=== PATIENT | female | born 1940 | race Caucasian/White ===

== ENCOUNTER 2020-01-10 12:59 | Outpatient (CLI) | payer OTHER, SELFPAY ==
[2020-01-10 14:24] LABS: Basophils Absolute Auto 0.1 K/mm3 (0.0-0.1); Basophils Percent Auto 0.8 % (0.2-1.2); Eosinophils Absolute Auto 0.3 K/mm3 (0-0.3); Eosinophils Percent Auto 3.3 % (0-4.4); Hematocrit 42.1 % (37.0-47.0); Hemoglobin 13.6 g/dL (12.0-15.0); Immature Granulocyte Absolute 0.02 K/mm3 (0.00-0.031); Immature Granulocyte Percent A 0.3 % (0-0.5); Lymphocytes Absolute Auto 1.97 K/mm3 (0.9-3.2); Lymphocytes Percent Auto 24.7 % (18.3-44.2); Mean Corpuscular HGB Conc 32.3 g/dl (32-36); Mean Corpuscular Hemoglobin 27.8 pg (26-34); Mean Corpuscular Volume 85.9 fl (80-100); Mean Platelet Volume 10.9 fl (7.4-10.4); Monocytes Absolute Auto 0.4 K/mm3 (0.1-0.6); Monocytes Percent Auto 4.5 % (2.6-8.5); Neutrophils Absolute Auto 5.3 K/mm3 (1.3-6.7); Neutrophils Percent Auto 66.4 % (45.5-73.1); Platelet Count Result 278 k/mm3 (150-375); Red Cell Distribution Width 15.9 % (11.5-14.5)
[2020-01-10 20:36] LABS: Blood Urea Nitrogen 17 mg/dL (7-17); Calcium 9.3 mg/dL (8.4-10.2); Carbon Dioxide 28 mmol/L (22-30); Chloride 99 mmol/L (98-107); Estimated Glomerular Filt Rate 54; Glucose 189 mg/dL (65-105); Potassium 3.9 mmol/L (3.4-5.0); Sodium 136 mmol/L (137-145)
[2020-01-10 20:51] LABS: Immunoglobulin A 221 mg/dL (70-400); Immunoglobulin G 721 mg/dL (700-1600); Immunoglobulin M 80 mg/dL (40-230)
[2020-01-15 22:24] LABS: Albumin 3.8 g/dL (3.8-4.8); Alpha 1 Globulin 0.4 g/dL (0.2-0.3); Alpha 2 Globulin 0.9 g/dL (0.5-0.9); Beta 1 Globulin 0.5 g/dL (0.4-0.6); Gamma Globulin 0.7 g/dL (0.8-1.7); Protein, Total 6.5 g/dL (6.1-8.1)
[2020-01-15 23:13] LABS: Kappa\\Lambda Light Chains 1.36 (0.26-1.65); Lambda Light Chain 17.6 mg/L (5.7-26.3)
== END 2020-01-10 13:00 | disposition home or self-care (01) ==
PROVIDERS: PCP Family Medicine; Visit Provider Internal Medicine Hematology & Oncology
DX: D47.2 Monoclonal gammopathy (principal)
CPT/HCPCS: 36415; 80048; 82784; 83883; 84155; 84165; 85025; 86334

== ENCOUNTER 2020-02-02 10:08 | Outpatient (CLI) | payer OTHER, SELFPAY ==
--- NOTE | ~2020-02-02 | MM_ITS ---
EXAMINATION: MM screening tracie BI w gerald HISTORY: Screening TECHNIQUE: Craniocaudal and mediolateral oblique 3-D tomosynthesis images were obtained and synthetic 2-D images were generated. CAD analysis was submitted and interpreted. COMPARISON: Comparison to multiple prior studies sequentially, with oldest reviewed study dated 08/14. BREAST PARENCHYMAL COMPOSITION: Breast composed of scattered areas of fibroglandular density. FINDINGS: There is no evidence of suspicious mass, calcification, or architectural distortion to sugg est malignancy in either breast. There has been no suspicious interval change. IMPRESSION: 1. No mammographic evidence of malignancy. 2. Recommend routine screening mammography in one year. BI-RADS Category 1: Negative Reviewed, dictated and finalized at location A.
--- NOTE | ~2020-02-02 | DEXA_ITS ---
Bone Density Report Name: Nichole Carmona Age: 79 Sex: Female Ethnicity: White Date of : 1940 Indication: postmenopausal; height loss; asthma or emphysema; hysterectomy; Referring Provider: Lula Regan Study: Bone densitometry was performed. Exam Date: February 02, 2020 Accession number: [id number] Bone Density: Region BMD T-score Z-score Classification AP Spine (L1, L3) 1.231 2.0 4.4 Normal Femoral Neck (Left) 0.968 1.1 3.2 Normal Total Hip (Left) 1.054 0.9 2.8 Normal Total Hip Bilateral Avg 1.038 0.8 2.7 Normal Femoral Neck (Right) 1.017 1.5 3.7 Normal Total Hip (Right) 1.021 0.6 2.5 Normal World Health Organization criteria for BMD impression classify patients as: Normal (T-score at or above -1.0), Osteopenia (T-score between -1.0 and -2.5), or Osteoporosis (T-score at or below -2.5). 10-year Fracture Risk: FRAX not reported because: All T-scores for Spine Total, Hip Total, Femoral Neck at or above -1.0 Previous Exams: Region Exam Age BMD T-score BMD Change BMD Change Date g/cm2 vs Baseline vs Previous AP Spine(L1, L3) 02/02/2020 79 1.231 2.0 -0.097(-7.3%)* -0.097(-7.3%)* 08/14/2014 73 1.328 2.9 Total Hip(Left) 02/02/2020 79 1.054 0.9 -0.030(-2.8%)* -0.030(-2.8%)* 08/14/2014 73 1.084 1.2 Total Hip(Right) 02/02/2020 79 1.021 0.6 -0.014(-1.4%) -0.014(-1.4%) 08/14/2014 73 1.035 0.8 *Denotes significance at 95% confidence level, LSC for AP Spine = 0.022 g/cm2, LSC for Total Hip = 0.027 g/cm2 Clinical Information Provided by Patient: Has used the following medications: HRT (i.e. estrogen/hormone therapy), Vitamin D, Calcium Has the following medical conditions: Asthma or Emphysema, Hysterectomy Patient maximum height was 64 Menopause Age: 33 Drinks caffeinated beverages Onset of menses at age 13 Number of children 0 Impression: The patient has normal bone mass. The BMD for the AP Spine(L1, L3) decreased, changing by -7.3% since the last DXA exam. The BMD for the Total Hip(Left) decreased, changing by -2.8% since the last DXA exam. Discussion: LOW RISK OF FRACTURE; BONE DENSITY IS WELL ABOVE THE MINIMUM DESIRABLE LEVEL AND ABOVE AVERAGE FOR AGE AND SEX AT ALL SKELETAL SITES TESTED. This person's bone density is above expected limits for age and sex. This is rarely clinically significant, but should be pursued if there are significant musculoskeletal complaints. The patient should follow a healthful
== END 2020-02-02 10:09 | disposition home or self-care (01) ==
PROVIDERS: PCP Family Medicine; Visit Provider Physician Assistant
DX: Z78.0 Asymptomatic menopausal state (principal); Z12.31 Encounter for screening mammogram for malignant neoplasm of breast
CPT/HCPCS: 77063; 77067; 77080

== ENCOUNTER 2021-05-23 11:17 | Emergency (ER) | payer OTHER, SELFPAY ==
[2021-05-23 11:29] VITALS: BP 146/73; PULSE 85; RESP 18; TEMP 38; O2SAT 97
--- NOTE | 2021-05-23 12:05 | ED.GENADULT ---
HPI - General Adult General Chief complaint: Upper Respiratory Infection Stated complaint: congestion/chills/cough Time Seen by Provider: 05/23/21 12:06 Source: patient Mode of arrival: ambulatory Limitations: no limitations History of Present Illness HPI narrative: 80-year-old female patient presents to the [facility] with complaints of cold symptoms for the past 2 to 3 days. Patient states started off with severe chills, body aches, headache, runny nose, stuffy nose, scratchy throat and a cough. Patient has been fully vaccinated with 2 dose regimen against COVID-19. Patient denies getting a booster shot. Patient states that her was in a jail which had some cases of Covid so they moved him out of their to her home. Patient states that her is not doing well is currently on hospice in the hospital. Related Data Home Medications Medication Instructions Recorded Confirmed cholecalciferol (vitamin D3) 50 2,000 unit PO DAILY 05/09/19 03/05/21 mcg (2,000 unit) tablet vit C 250 mg-vit E 90 mg-zinc 40 1 tablet PO ONCE cap 02/05/20 03/05/21 mg-copper 1 [id number] capsule omega-3 fatty acids 1,000 mg 1,000 mg PO DAILY 12/15/20 03/05/21 capsule cetirizine 10 mg tablet 10 mg PO DAILY PRN 03/05/21 03/05/21 vitamin B complex 1 tablet PO DAILY 03/05/21 03/05/21 Allergies Allergy/AdvReac Type Severity Reaction Status Date / Time propoxyphene Allergy Mild sob Verified 03/05/21 13:04 belladonna alkaloids Allergy Unknown sob Verified 03/05/21 13:04 Cephalosporins Allergy Unknown rash Verified 03/05/21 13:04 ciprofloxacin Allergy Unknown rash Verified 03/05/21 13:04 gentamicin Allergy Unknown swelling Verified 03/05/21 13:04 monosodium glutamate Allergy Unknown MAKES Verified 03/05/21 13:04 HEART RACE Penicillins Allergy Unknown rash Verified 03/05/21 13:04 pentazocine Allergy Unknown rash Verified 03/05/21 13:04 Sulfa (Sulfonamide Allergy Unknown rash and Verified 03/05/21 13:04 Antibiotics) cough Quinolones AdvReac Unknown BAD Verified 03/05/21 13:04 DREAMES & SOMETIMES HUGHES PENTAZOCINE LACTATE Allergy Unknown confusion Uncoded 03/05/21 13:04 Review of Systems Review of Systems: CONSTITUTIONAL: Positive fever, chills, or sweats. EYES: Denies visual changes, redness, or discharge. ENT: Positive rhinorrhea, congestion, sore throat, denies otalgia. CARDIOVASCULAR: Denies chest pain, palpitations, or edema. RESPIRATORY: Positive cough, denies dyspnea. GASTROINTESTINAL: Denies abdominal pain, nausea, vomiting, or diarrhea. GENITOURINARY: Denies dysuria or hematuria. SKIN: Denies rash or itching. MUSCULOSKELETAL: Denies back pain, joint pain, or myalgia. NEUROLOGIC: Positive headache, denies numbness, or weakness. PSYCHIATRIC: Denies anxiety or depression. [facility] Past Medical History Medical History Allergic rhinitis Atherosclerosis of aorta Atherosclerosis of [place] coronary artery of [place] heart without angina pectoris Cerebral atherosclerosis Chronic kidney disease, stage 3 (moderate) Chronic kidney disease, stage 3a COPD (chronic obstructive pulmonary disease) Current use of alf anticoagulation Diabetic neuropathy Diabetic polyneuropathy associated with type 2 diabetes mellitus DISH (diffuse idiopathic skeletal hyperostosis) Diverticulosis of intestine, part unspecified, without perforation or abscess with bleeding Exudative age-related macular degeneration, right eye, with active choroidal neovascularization Gait abnormality HTN (hypertension), benign Hypokalemia Irritable bowel syndrome with both constipation and diarrhea Lumbar back pain with radiculopathy affecting lower extremity MGUS (monoclonal gammopathy of unknown significance) Mild intermittent asthma without complication Mixed hyperlipidemia Neurogenic claudication PAF (paroxysmal atrial fibrillation) PMR (polymyalgia rheumatica) Psychophysiological
[2021-05-23 14:33] VITALS: TEMP 37.3
== END 2021-05-23 12:25 | disposition home or self-care (01) ==
PROVIDERS: Emergency Provider Nurse Practitioner Family; PCP Family Medicine
DX: U07.1 COVID-19 (principal); I70.0 Atherosclerosis of aorta; I25.10 Atherosclerotic heart disease of native coronary artery without angina pectoris; I67.2 Cerebral atherosclerosis; I13.10 Hypertensive heart and chronic kidney disease without heart failure, with stage 1 through stage 4 chronic kidney disease, or unspecified chronic kidney disease; E11.22 Type 2 diabetes mellitus with diabetic chronic kidney disease; N18.31 Chronic kidney disease, stage 3a; Z79.84 Long term (current) use of oral hypoglycemic drugs; J44.9 Chronic obstructive pulmonary disease, unspecified; Z79.01 Long term (current) use of anticoagulants; E11.42 Type 2 diabetes mellitus with diabetic polyneuropathy; E55.9 Vitamin D deficiency, unspecified
CPT/HCPCS: 87426; 87804; 99213; C9803; G0463

== ENCOUNTER 2021-05-26 09:03 | Outpatient (RCR) | payer OTHER, MEDICARE, SELFPAY ==
[2021-05-26] MEDS: ACETAMINOPHEN 325 MG TABLET 650 MG PO (09:36)
[2021-05-26] MEDS: FAMOTIDINE 20 MG TABLET PO (09:36)
[2021-05-26] MEDS: diphenhydrAMINE HCl CAP 25 MG CAPSULE PO (09:36)
[2021-05-26 09:45] VITALS: BP 132/73; PULSE 81; RESP 18; O2SAT 97
[2021-05-26 11:12] VITALS: BP 136/48
--- NOTE | 2021-05-27 12:40 | PC.NURSE ---
Spoke to Kristine, and she is felling much better today. She has no questions for us at this time.
== END 2021-05-26 16:00 ==
LOC: AMCINF 09:03
PROVIDERS: PCP Nurse Practitioner Gerontology; Visit Provider Internal Medicine Hematology & Oncology
DX: U07.1 COVID-19 (principal); I10 Essential (primary) hypertension; I25.10 Atherosclerotic heart disease of native coronary artery without angina pectoris; J44.9 Chronic obstructive pulmonary disease, unspecified; E11.9 Type 2 diabetes mellitus without complications; D84.9 Immunodeficiency, unspecified; N18.9 Chronic kidney disease, unspecified
CPT/HCPCS: A9270; M0243; Q0243

== ENCOUNTER 2021-12-07 14:40 | Outpatient (CLI) | payer OTHER, SELFPAY ==
--- NOTE | ~2021-12-07 | MM_ITS ---
EXAMINATION: MM screening tracie BI w gerald HISTORY: Screening TECHNIQUE: Craniocaudal and mediolateral oblique 3-D tomosynthesis images were obtained and synthetic 2-D images were generated. CAD analysis was submitted and interpreted. COMPARISON: Comparison to multiple prior studies sequentially, with oldest reviewed study dated 08/14. BREAST PARENCHYMAL COMPOSITION: Breast composed of scattered areas of fibroglandular density FINDINGS: There is no evidence of suspicious mass, calcification, or architectural distortion to sugg est malignancy in either breast. There has been no suspicious interval change. IMPRESSION: 1. No mammographic evidence of malignancy. 2. Recommend routine screening mammography in one year. BI-RADS Category 1: Negative Reviewed, dictated and finalized at location A.
== END 2021-12-07 14:41 | disposition home or self-care (01) ==
PROVIDERS: PCP Family Medicine; Visit Provider Nurse Practitioner Gerontology
DX: Z12.31 Encounter for screening mammogram for malignant neoplasm of breast (principal)
CPT/HCPCS: 77063; 77067

== ENCOUNTER 2022-06-24 12:17 | Emergency (ER) | payer OTHER, SELFPAY ==
--- NOTE | 2022-06-24 12:19 | ED.URI ---
HPI - URI/Sore Throat General Chief Complaint: Upper Respiratory Infection Stated Complaint: Sinus Pain Time Seen by Provider: 06/24/22 12:19 Source: patient and RN notes reviewed History of Present Illness HPI Narrative: patient is a 81-year-old female who presents to the Urgent Care with complaints of sinus congestion, nasal drainage, bleeding in the nasal passage, and bilateral ear pain. Patient states that started 5 days ago and seems to be worsening. Patient was on steroids up until approximately due to an elevated CRP. Patient states that she typically gets a Z-Giles from her doctor . Patient does have a history of deviated septum and nasal polyps. Denies any fever. No other acute complaints. No acute distress noted. Patient aware of the plan of care. Some parts of this dictation were generated by voice recognition software and may contain typographical and/or grammatical inaccuracies. Related Data Home Medications Medication Instructions Recorded Confirmed cholecalciferol (vitamin D3) 50 2,000 unit PO DAILY 05/09/19 04/09/22 mcg (2,000 unit) tablet vit C 250 mg-vit E 90 mg-zinc 40 1 tablet PO ONCE 02/05/20 04/09/22 mg-copper 1 [id number] capsule (PreserVision AREDS-2) omega-3 fatty acids 1,000 mg 1,000 mg PO DAILY 12/15/20 04/09/22 capsule (Fish Oil Concentrate) cetirizine 10 mg tablet 10 mg PO DAILY PRN allergy 03/05/21 04/09/22 vitamin B complex 1 tablet PO DAILY 03/05/21 04/09/22 apixaban 5 mg tablet (Eliquis) mg 06/24/22 Allergies Allergy/AdvReac Type Severity Reaction Status Date / Time propoxyphene Allergy Mild sob Verified 06/24/22 12:26 belladonna alkaloids Allergy Unknown sob Verified 06/24/22 12:26 Cephalosporins Allergy Unknown rash Verified 06/24/22 12:26 ciprofloxacin Allergy Unknown rash Verified 06/24/22 12:26 gentamicin Allergy Unknown swelling Verified 06/24/22 12:26 monosodium glutamate Allergy Unknown MAKES Verified 06/24/22 12:26 HEART RACE Penicillins Allergy Unknown rash Verified 06/24/22 12:26 pentazocine Allergy Unknown rash Verified 06/24/22 12:26 Sulfa (Sulfonamide Allergy Unknown rash and Verified 06/24/22 12:26 Antibiotics) cough Quinolones AdvReac Unknown BAD Verified 06/24/22 12:26 DREAMES & SOMETIMES HUGHES PENTAZOCINE LACTATE Allergy Unknown confusion Uncoded 06/24/22 12:26 Review of Systems Review of Systems: CONSTITUTIONAL: Denies fever, chills, or sweats. EYES: Denies visual changes, redness, or discharge. ENT: Reports nasal congestion, sinus pressure, bilateral otalgia CARDIOVASCULAR: Denies chest pain, palpitations, or edema. RESPIRATORY: Denies cough or dyspnea. GASTROINTESTINAL: Denies abdominal pain, nausea, vomiting, or diarrhea. GENITOURINARY: Denies dysuria or hematuria. SKIN: Denies rash or itching. MUSCULOSKELETAL: Denies back pain, joint pain, or myalgia. NEUROLOGIC: Denies headache, numbness, or weakness. All other systems reviewed are negative, except as documented in HPI. [facility] Past Medical History Medical History Allergic rhinitis Atherosclerosis of aorta Atherosclerosis of [place] coronary artery of [place] heart without angina pectoris Cerebral atherosclerosis Chronic kidney disease, stage 3a COPD (chronic obstructive pulmonary disease) Current use of termite technician anticoagulation Diabetic neuropathy Diabetic polyneuropathy associated with type 2 diabetes mellitus DISH (diffuse idiopathic skeletal hyperostosis) Diverticulosis of intestine, part unspecified, without perforation or abscess with bleeding Exudative age-related macular degeneration, right eye, with active choroidal neovascularization Gait abnormality HTN (hypertension), benign Hypokalemia Irritable bowel syndrome with both constipation and diarrhea Lumbar back pain with radiculopathy affecting lower extremity MGUS (monoclonal gammopathy of unknown significance) Mild intermittent asthma without
[2022-06-24 12:25] VITALS: BP 148/69; PULSE 92; RESP 16; TEMP 37; O2SAT 97
[2022-06-24 12:26] VITALS: BP 148/69; PULSE 92; RESP 16; TEMP 37; O2SAT 97
== END 2022-06-24 13:00 | disposition home or self-care (01) ==
PROVIDERS: Emergency Provider Nurse Practitioner Family; PCP Family Medicine
DX: J32.9 Chronic sinusitis, unspecified (principal); I70.0 Atherosclerosis of aorta; I25.10 Atherosclerotic heart disease of native coronary artery without angina pectoris; I67.2 Cerebral atherosclerosis; I13.10 Hypertensive heart and chronic kidney disease without heart failure, with stage 1 through stage 4 chronic kidney disease, or unspecified chronic kidney disease; E11.22 Type 2 diabetes mellitus with diabetic chronic kidney disease; N18.31 Chronic kidney disease, stage 3a; J44.9 Chronic obstructive pulmonary disease, unspecified; Z79.01 Long term (current) use of anticoagulants; E11.42 Type 2 diabetes mellitus with diabetic polyneuropathy; E78.2 Mixed hyperlipidemia; I48.0 Paroxysmal atrial fibrillation
CPT/HCPCS: 99213; G0463

== ENCOUNTER 2022-09-06 14:36 | Outpatient (CLI) | payer OTHER, SELFPAY ==
--- NOTE | ~2022-09-06 | XR_ITS ---
EXAMINATION: XR hand LT min 3V, XR hand RT min 3V DATE: 09/06/2022 15:01 INDICATION: Chronic pain throughout the right hand and at the left third digit TECHNIQUE: 1. Posteroanterior, oblique and lateral views of the left hand were obtained. 2. Posteroanterior, oblique and lateral views of the right hand were obtained. COMPARISON: None. FINDINGS: Diffuse osteopenia at the bilateral hands. Bone alignment is normal. No fractures. Relatively symmetr ic pattern of moderate polyarticular osteoarthritis at the bilateral first carpometacarpal and a few interphalangeal joints with distal predominance. Mild osteoarthritis at the bilateral wrist, triscaph e, the metacarpophalangeal joints and remaining interphalangeal joints. No erosions to suggest an inf lammatory arthritis. Soft tissues are unremarkable. IMPRESSION: 1. 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 Reviewed, dictated and finalized at location B. IMPRESSION: 1. 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
== END 2022-09-06 14:37 | disposition home or self-care (01) ==
PROVIDERS: PCP Family Medicine; Visit Provider Family Medicine
DX: M19.041 Primary osteoarthritis, right hand (principal); M19.042 Primary osteoarthritis, left hand
CPT/HCPCS: 73130

== ENCOUNTER 2023-08-15 12:16 | Outpatient (CLI) | payer MEDICARE, SELFPAY ==
--- NOTE | ~2023-08-15 | XR_ITS ---
EXAMINATION: XR lumbar spine 2-3V DATE: 08/15/2023 12:46 INDICATION: Spinal stenosis TECHNIQUE: Anteroposterior and lateral views of the lumbar spine, and cone-down lateral view of the l umbosacral junction were obtained. COMPARISON: CT, 11/13/2017. FINDINGS: Bone alignment is normal. There is no fracture. There is moderate loss of intervertebral di sc space height throughout the lumbar spine. There is [id number] facet joint osteoarthritis of the lower lumbar spine. Small degenerative osteophytes project from the anterior endplates of multipl e vertebral bodies. An inferior vena cava filter is noted. There is moderate osteoarthritis of the hi ps. Cholecystectomy clips are noted. IMPRESSION: 1. Moderate lumbar spondylosis without acute findings. Reviewed, dictated and finalized at location L. INIST BRAKE
== END 2023-08-15 12:17 | disposition home or self-care (01) ==
LOC: ANHIMG 12:22
PROVIDERS: PCP Family Medicine; Visit Provider Family Medicine
DX: M48.061 Spinal stenosis, lumbar region without neurogenic claudication (principal); M47.896 Other spondylosis, lumbar region
CPT/HCPCS: 72100

== ENCOUNTER 2023-10-14 15:37 | Outpatient (CLI) | payer MEDICARE, SELFPAY ==
--- NOTE | ~2023-10-14 | US_ITS ---
EXAMINATION: US arterial ankle brachial ind DATE: 10/14/2023 16:59 INDICATION: Peripheral vascular disease. TECHNIQUE: Segmental pressures and plethysmographic and Doppler waveforms of the brachial and lower e xtremity arteries were obtained. COMPARISON: None. FINDINGS: Right and left brachial artery pressures of 191 mm Hg and 162 mm Hg, respectively, are concordant (no rmal difference <= 30 mmHg). The right ankle-brachial index (MARIAMA) is 0.88 (normal >= 0.9-1.0). The right great toe-brachial index (TBI) is 0.37 (normal >= 0.65). Arterial Doppler waveforms are biphasic at the ankle. The left MARIAMA is 0.95. The left TBI is 0.36. Arterial Doppler waveforms are biphasic at the ankle. IMPRESSION: 1. Mildly decreased ABIs, consistent with arterial occlusive disease. Reviewed, dictated and finalized at location E.
== END 2023-10-14 15:38 | disposition home or self-care (01) ==
PROVIDERS: PCP Family Medicine
DX: I73.9 Peripheral vascular disease, unspecified (principal)
CPT/HCPCS: 93922

== ENCOUNTER 2023-11-14 14:21 | Outpatient (CLI) | payer MEDICARE, SELFPAY ==
--- NOTE | ~2023-11-14 | MM_ITS ---
EXAMINATION: MM screening tracie BI w gerald HISTORY: Screening TECHNIQUE: Craniocaudal and mediolateral oblique 3-D tomosynthesis images were obtained and synthetic 2-D images were generated. CAD analysis was submitted and interpreted. COMPARISON: Comparison to multiple prior studies sequentially, with oldest reviewed study dated 08/14. BREAST PARENCHYMAL COMPOSITION: Not Dense: Breast are almost entirely fatty. FINDINGS: There is no evidence of suspicious mass, calcification, or architectural distortion to sugg est malignancy in either breast. There has been no suspicious interval change. IMPRESSION: 1. No mammographic evidence of malignancy. 2. Recommend routine screening mammography in one year. BI-RADS Category 1: Negative Reviewed, dictated and finalized at location A.
== END 2023-11-14 14:22 | disposition home or self-care (01) ==
LOC: ANHIMG 14:25
PROVIDERS: PCP Family Medicine; Visit Provider Family Medicine
DX: Z12.31 Encounter for screening mammogram for malignant neoplasm of breast (principal)
CPT/HCPCS: 77063; 77067

== ENCOUNTER 2023-12-08 12:24 | Outpatient (CLI) | payer MEDICARE, SELFPAY ==
--- NOTE | ~2023-12-08 | MR_ITS ---
MRI of the brain Clinical History: Neoplasm Technique: Axial and sagittal T1-weighted images were acquired. These were followed by axial T2-weigh ruddy, diffusion weighted, gradient, and FLAIR images. Findings: There is no acute infarct, intracranial hemorrhage, or definite mass lesion. There are nume jose focal FLAIR hyperintense white matter lesions throughout the brain, most compatible with moderat e to advanced chronic microvascular ischemic change. Ventricles and subarachnoid spaces are unremarkable. Orbits are unremarkable. Paranasal sinuses and m astoid air cells are clear. Major intracranial flow voids are intact. Sagittal midline structures are intact. IMPRESSION: No acute infarct, intracranial hemorrhage, or mass lesion identified. Moderate to advanced chronic microvascular ischemic change. Consider postcontrast imaging to better evaluate for small metastatic lesions. Reviewed, dictated and finalized at [facility].
== END 2023-12-08 12:25 | disposition home or self-care (01) ==
PROVIDERS: PCP Family Medicine; Visit Provider Family Medicine
DX: I67.82 Cerebral ischemia (principal); Z09 Encounter for follow-up examination after completed treatment for conditions other than malignant neoplasm
CPT/HCPCS: 70551

== ENCOUNTER 2024-02-02 11:26 | Outpatient (CLI) | payer MEDICARE, SELFPAY ==
--- NOTE | ~2024-02-02 | XR_ITS ---
XR knee LT 3V 02/02/2024 12:05 Indication: Left knee pain Procedure: 3 views left knee Comparison: No prior studies for comparison. Findings: There is moderate tricompartment osteoarthritis. Osteopenia. No fracture or traumatic malal ignment. No joint effusion. No foreign bodies. Impression: 1: Moderate osteoarthritis of the left knee. Reviewed, dictated and finalized at location B. Impression: 1: Moderate osteoarthritis of the left knee.
== END 2024-02-02 11:27 | disposition home or self-care (01) ==
PROVIDERS: PCP Family Medicine; Visit Provider Family Medicine
DX: M17.12 Unilateral primary osteoarthritis, left knee (principal)
CPT/HCPCS: 73562

== ENCOUNTER 2024-02-10 10:43 | Outpatient (CLI) | payer MEDICARE, SELFPAY ==
[2024-02-10 10:59] LABS: Basophils Percent Auto 0.4 % (0.2-1.2); Eosinophils Absolute Auto 0.1 K/mm3 (0-0.3); Eosinophils Percent Auto 0.9 % (0-4.4); Hematocrit 43.3 % (37.0-47.0); Hemoglobin 14.1 g/dL (12.0-15.0); Immature Granulocyte Absolute 0.03 K/mm3 (0.00-0.031); Immature Granulocyte Percent A 0.4 % (0-0.5); Lymphocytes Absolute Auto 2.46 K/mm3 (0.9-3.2); Lymphocytes Percent Auto 29.9 % (18.3-44.2); Mean Corpuscular HGB Conc 32.6 g/dl (32-36); Mean Corpuscular Hemoglobin 28.1 pg (26-34); Mean Corpuscular Volume 86.3 fl (80-100); Mean Platelet Volume 9.6 fl (7.4-10.4); Monocytes Absolute Auto 0.5 K/mm3 (0.1-0.6); Monocytes Percent Auto 6.3 % (2.6-8.5); Neutrophils Absolute Auto 5.1 K/mm3 (1.3-6.7); Neutrophils Percent Auto 62.1 % (45.5-73.1); Platelet Count Result 257 k/mm3 (150-375); Red Blood Count 5.02 M/mm3 (4.2-5.4); White Blood Count 8.2 K/mm3 (4.5-10.0)
[2024-02-10 11:03] LABS: Blood Urea Nitrogen 29 mg/dL (8-26); Carbon Dioxide 28 mmol/L (22-30); Chloride 99 mmol/L (98-109); Estimated Glomerular Filt Rate 53; Glucose 106 mg/dL (70-105); Ionized Calcium (POC) 1.16 mmol/L (1.11-1.31); Potassium 3.3 mmol/L (3.5-4.9); Sodium 138 mmol/L (138-146)
[2024-02-10 13:31] LABS: Alanine Aminotransferase 25 U/L (6-35); Albumin Level 4.3 g/dL (3.5-5.1); Alkaline Phosphatase 100 U/L (38-126); Anion Gap 10 mmol/L (4-12); Aspartate Amino Transferase 19 U/L (14-36); Bilirubin,Total 0.5 mg/dL (0.2-1.3); Blood Urea Nitrogen 30 mg/dL (7-17); Calcium 9.3 mg/dL (8.4-10.2); Carbon Dioxide 30 mmol/L (22-30); Chloride 96 mmol/L (98-107); Estimated Glomerular Filt Rate 60; Glucose 103 mg/dL (65-110); Potassium 3.4 mmol/L (3.4-5.0); Sodium 136 mmol/L (137-145)
== END 2024-02-10 10:44 | disposition home or self-care (01) ==
LOC: ANHLAB 10:45
PROVIDERS: PCP Family Medicine; Visit Provider Internal Medicine Hematology & Oncology
DX: D47.2 Monoclonal gammopathy (principal)
CPT/HCPCS: 36415; 80047; 80053; 85025

== ENCOUNTER 2024-04-25 14:51 | Observation (INO) | payer MEDICARE, SELFPAY ==
[2024-04-25] VITALS (10 sets, daily range): BP systolic 136–181; BP diastolic 53–87; PULSE 55–87; RESP 13–20; TEMP 36.4–36.7; O2SAT 96–100
--- NOTE | ~2024-04-25 | MR_ITS ---
EXAMINATION: MR brain/brain stem wo/w con DATE: 04/26/2024 10:51 INDICATION: Dizziness. Lightheadedness. TECHNIQUE: Magnetic resonance imaging (MRI) of the brain and brainstem was performed without and with 20 mL MultiHance intravenous contrast. COMPARISON: Brain MRI 12/08/2023, head CT 04/25/2024 FINDINGS: There are scattered areas of nonspecific increased T2-weighted signal intensity in the cere bral white matter. There is no intracranial hemorrhage, acute infarction, or abnormal intracranial ma ss lesion. The ventricles are normal in size. There are likely changes of ocular lens replacement xiao geries. The paranasal sinuses are clear. The mastoid air cells are normal. IMPRESSION: 1. Stable moderate nonspecific cerebral white matter disease, which likely represents chronic small v essel ischemic disease. Reviewed, dictated and finalized at location B. IMPRESSION: 1. Stable moderate nonspecific cerebral white matter disease, which likely repr esents chronic small vessel ischemic disease.
--- NOTE | ~2024-04-25 | XR_ITS ---
EXAMINATION: XR chest 2V DATE: 04/25/2024 15:48 INDICATION: Heart murmur. TECHNIQUE: Frontal and lateral views of the chest were obtained. COMPARISON: Chest single view 09/03/2011 FINDINGS: Calcified right lung nodules are consistent with old granulomatous disease. No pleural effu abby or pneumothorax. The heart size is normal. IMPRESSION: 1. No acute cardiopulmonary disease. Reviewed, dictated and finalized at location B.
--- NOTE | ~2024-04-25 | CT_ITS ---
EXAMINATION: CT brain wo con DATE: 04/25/2024 16:16 INDICATION: New onset dizziness and lightheadedness TECHNIQUE: Computed tomography (CT) of the head was performed without intravenous contrast. Sagittal and coronal reconstructions were performed. The mA was adjusted according to patient size. Iterative reconstruction technique was employed. The dose-length product was 605.33 mGy-cm. COMPARISON: Brain MR dated 12/08/2023 FINDINGS: No acute intracranial hemorrhage, acute infarction or abnormal extra axial fluid collection. There is mild scattered white matter hypoattenuation consistent with chronic small vessel ischemic disease. S ymmetric prominence of the sulci and and subarachnoid spaces overlying the convexities consistent wit h mild age-appropriate diffuse cerebral volume loss. Ventricles are normal and symmetric. No mass/mas s effect. Changes of right intraocular lens replacement. The orbits, paranasal sinuses and mastoid ai r cells are normal. Hyperostosis frontalis. IMPRESSION: 1. No acute intracranial process. 2. Age-related changes including mild diffuse on loss and mild scattered white matter hypoattenuation consistent with chronic small vessel ischemic disease. Reviewed, dictated and finalized at location A.
--- NOTE | ~2024-04-25 | CT_ITS ---
EXAMINATION: CTA brain carotid DATE: 04/25/2024 18:37 INDICATION: dizziness x5d TECHNIQUE: Computed tomographic angiography (CTA) of the head and neck was performed with 100 mL Omni paque-350 intravenous contrast. Automated exposure control and iterative reconstruction technique wer e employed. The dose-length product was 952.69 mGy-cm. Maximum intensity projection and volume rende red 3D-reconstructions were created by the technologist on a separate workstation. COMPARISON: CT brain, same date. FINDINGS: vessel infarct, intracranial hemorrhage, mass, or hydrocephalus. CTA HEAD: No large vessel occlusion, aneurysm, high flow vascular malformation, nidus or extravasation. Symmetr ic parenchymal enhancement. Patent cerebral veins. The distal left vertebral artery is hypoplastic/ab sent with majority of its flow directed to a cerebellar artery, a normal variant. CTA NECK: Aortic arch and proximal great vessels: The left vertebral artery takes its origin directly off the a rch, a normal variant. Mild arch calcification. Right common carotid, carotid bifurcation, and internal carotid artery: Mild calcification at the bif urcation.There is 0% stenosis of the proximal right internal carotid artery relative to normal distal artery lumen diameter (NASCET criteria). Left common carotid, carotid bifurcation, and internal carotid artery: Mild calcification at the bifu rcation.There is 0% stenosis of the proximal left internal carotid artery relative to normal distal a rtery lumen diameter (NASCET criteria). Vertebral arteries: No significant plaque or stenosis. Right vertebral artery is dominant, Other findings: Degenerative changes in the cervical spine. Severe right neural foraminal narrowing a t C5-6 secondary to degenerative changes. Subcentimeter thyroid nodules which require no additional e valuation at this time. Dilated central pulmonary arteries as can be seen with pulmonary arterial hyp ertension. IMPRESSION: No large vessel intracranial occlusion, high-grade intracranial stenosis, or aneurysm. No carotid or vertebral artery occlusion, dissection, or significant stenosis. Reviewed, dictated and finalized at location K. IMPRESSION: No large vessel intracranial occlusion, high-grade intracranial stenosis, or an eurysm. No carotid or vertebral artery occlusion, dissection, or significant stenosis.
--- NOTE | 2024-04-25 15:16 | ECG_ITS ---
Test Date: 2024-04-25 15:33:58 Measurements Intervals Marlin Rate: 66 P: 22 NM: 147 QRS: -42 QRSD: 97 T: 55 QT: 405 QTc: 426 Interpretive Statements SINUS RHYTHM MARKED LEFT AXIS DEVIATION [QRS AXIS < -30] POSSIBLE ANTERIOR MYOCARDIAL INFARCTION , PROBABLY OLD [30 ms Q WAVE IN V3/V4, OR R < 0.2 mV IN V4] No previous ECG available for comparison Electronically Signed On 04-26-2024 11:37:33 CDT by Jefferson Miles M.D.
--- NOTE | 2024-04-25 15:33 | ED_ITS ---
HPI - Dizziness General Chief Complaint: Dizziness <Rosario Menendezuble, PRODUCTION STAFF WORKER - Last Filed: 04/25/24 15:38> Stated Complaint: Dizzy <Rosario Menendezgisela PRODUCTION STAFF WORKER - Last Filed: 04/25/24 15:38> Time Seen by Provider: 04/25/24 15:20 <Rosario Menendezgisela PRODUCTION STAFF WORKER - Last Filed: 04/25/24 15:38> Focused HPI: Patient is an 83-year-old female presents to the ER with complaints lightheaded and dizziness. She reports she has a history of vertigo, but this is different. Patient reports she has an extensive medical history, but she went in to see her primary care provider on Tuesday and they noted she has a new heart murmur. She reports she has been lightheaded and discombobulated for the past couple days, but she has also experienced a lot of stress recently. Patient denies chest pain, shortness of breath, or other signs/ symptoms of infection. GENERAL: Well-appearing, well-nourished, and in no acute distress. HEAD: Normocephalic, atraumatic. CHEST: Clear to auscultation. ?No respiratory distress. HEART: Regular rate and rhythm.?Dull cardiac murmur noted. NEURO: ?Alert and oriented x3. Patient screened in triage and initial orders placed.? ?Additional care and disposition to be based upon?diagnostic testing and treatment. <Rosario Bejarano Dominick, PRODUCTION STAFF WORKER - Last Filed: 04/25/24 15:38> Focused HPI: Patient is an 83-year-old female presents to the ER with complaints lightheaded and dizziness. She reports she has a history of vertigo, but this is different. Patient reports she has an extensive medical history, but she went in to see her primary care provider on Tuesday and they noted she has a new heart murmur. She reports she has been lightheaded and discombobulated for the past couple days, but she has also experienced a lot of stress recently. Patient denies chest pain, shortness of breath, or other signs/ symptoms of infection. GENERAL: Well-appearing, well-nourished, and in no acute distress. HEAD: Normocephalic, atraumatic. CHEST: Clear to auscultation. ?No respiratory distress. HEART: Regular rate and rhythm.?Dull cardiac murmur noted. NEURO: ?Alert and oriented x3. Patient screened in triage and initial orders placed.? ?Additional care and disposition to be based upon?diagnostic testing and treatment. <Jory Espinosa PA-C - Last Filed: 04/26/24 01:54> Source: patient <Jory Espinosa PA-C - Last Filed: 04/26/24 01:54> Mode of arrival: ambulatory <Jory Espinosa PA-C - Last Filed: 04/26/24 01:54> Limitations: no limitations <FLORY Montaño Last Filed: 04/26/24 01:54> History of Present Illness HPI Narrative: Agree with above HPI. States current dizziness has been going on since Tuesday and has been fairly constant. Described more as a lightheadedness sensation than room spinning like her previous vertigo. States it is worse with movement. Denies headache, slurred speech, confusion, focal weakness or numbnes s, vision changes. <Jory Espinosa PA-C - Last Filed: 04/26/24 01:54> Related Data Home Medications: Home Medications Medication Instructions Recorded Confirmed cholecalciferol (vitamin D3) 50 2,000 unit PO DAILY 05/09/19 06/24/22 mcg (2,000 unit) tablet vit C 250 mg-vit E 90 mg-zinc 40 1 tablet PO ONCE 02/05/20 06/24/22 mg-copper 1 ov-ynjtuj-humhon capsule (PreserVision AREDS-2) omega-3 fatty acids 1,000 mg 1,000 mg PO DAILY 12/15/20 06/24/22 capsule (Fish Oil Concentrate) cetirizine 10 mg tablet 10 mg PO DAILY PRN allergy 03/05/21 06/24/22 vitamin B complex 1 tablet PO DAILY 03/05/21 06/24/22 apixaban 5 mg tablet (Eliquis) 5 mg PO BID 06/24/22 06/24/22 <Rosario Tan APRN - Last Filed: 04/25/24 15:38> Allergies/Adverse Reactions: Allergies Allergy/AdvReac Type Severity Reaction Status Date / Time propoxyphene Allergy Mild sob Verified 06/24/22 12:26 belladonna alkaloids Allergy Unknown sob Verified 06/24/22 12:26 Cephalosporins Allergy Unknown rash Verified 06/24/22 12:26 ciprofloxacin Allergy Unknown rash Verified 06/24/22 12:26 gentamicin Allergy Unknown swelling Verified 06/24/22 12:26 monosodium glutamate Allergy Unknown MAKES Verified 06/24/22 12:26 HEART RACE Penicillins Allergy Unknown rash Verified 06/24/22 12:26 pentazocine Allergy Unknown rash Verified 06/24/22 12:26 Sulfa (Sulfonamide Allergy Unknown rash and Verified 06/24/22 12:26 Antibiotics) cough Quinolones AdvReac Unknown BAD Verified 06/24/22 12:26 DREAMES & SOMETIMES HUGHES PENTAZOCINE LACTATE Allergy Unknown confusion Uncoded 06/24/22 12:26 <Rosario Tan, KACIE - Last Filed: 04/25/24 15:38> Review of Systems Review of Systems: All systems reviewed & are unremarkable except as noted in HPI. <Jory Espinosa PA-C - Last Filed: 04/26/24 01:54> All systems reviewed & are unremarkable except as noted in HPI and below <Jory Espinosa PA-C - Last Filed: 04/26/24 01:54> [facility] Past Medical History Medical History: Medical History Allergic rhinitis Atherosclerosis of aorta Atherosclerosis of [place] coronary artery of [place] heart without angina pectoris Cerebral atherosclerosis Chronic kidney disease, stage 3a COPD (chronic obstructive pulmonary disease) Current use of detention anticoagulation Diabetic neuropathy Diabetic polyneuropathy associated with type 2 diabetes mellitus DISH (diffuse idiopathic skeletal hyperostosis) Diverticulosis of intestine, part unspecified, without perforation or abscess with bleeding Exudative age-related macular degeneration, right eye, with active choroidal neovascularization Gait abnormality HTN (hypertension), benign Hypokalemia Irritable bowel syndrome with both constipation and diarrhea Lumbar back pain with radiculopathy affecting lower extremity MGUS (monoclonal gammopathy of unknown significance) Mild intermittent asthma without complication Mixed hyperlipidemia Neurogenic claudication PAF (paroxysmal atrial fibrillation) PMR (polymyalgia rheumatica) Psychophysiological insomnia Sensorineural hearing loss Trigger ring finger of left hand Tubulovillous adenoma of colon Vitamin D deficiency, unspecified <Rosario Tan, PRODUCTION STAFF WORKER - Last Filed: 04/25/24 15:38> Surgical History Surgical History: Surgical History History of total abdominal hysterectomy <Rosariojaswinder Menendezuble, PRODUCTION STAFF WORKER - Last Filed: 04/25/24 15:38> Social History Social History: Social History Social History: Smoking status: Never smoker Second hand tobacco smoke exposure: No Alcohol intake: never Substance use: never Substance use type: does not use Living arrangements: with family Occupation/Education: retired Gender identity (if verbalized by the patient): Female Sexual Orientation (if Verbalized by the Patient): Straight or Heterosexual Spiritual care concerns: No <Rosario Tan, PRODUCTION STAFF WORKER - Last Filed: 04/25/24 15:38> Exam Narrative: GENERAL: Elderly, obese with BMI of 32.7, non-toxic, in no acute distress. HEAD: Normocephalic, atraumatic. EYES: PERRL/EOMI though slight gaze inability to look farthest left, conjunctivae clear bilaterally. No significant nystagmus. ENT: TMs clear yanira. Small amount of cerumen in R ear but no impaction. No signs of AOE/AOM. NECK: Supple. No meningeal signs. RESPIRATORY: Airway patent, respirations nonlabored. Clear to auscultation bilaterally, no rales, rhonchi, wheezing. CARDIOVASCULAR: Regular rate and rhythm without murmurs, rubs, or gallops. Peripheral pulses 2+ and equal bilaterally. MUSCULOSKELETAL: Moves all extremities. No gross deformities. SKIN: Warm, dry, normal color. No rashes. NEURO: A&O X3. Speech clear. Follows commands. CN II-XII intact. Sensation grossly intact. Steady gait. No ataxic movements. Strength 5/5 in upper and lower extremities bilaterally. No pronator drift. 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 PSYCHIATRIC: Appropriate mood and affect. Normal interaction. <Jory Espinosa PA-C - Last Filed: 04/26/24 01:54> Course Vital Signs Vital signs: Vital Signs Temperature 98.1 F 04/25/24 14:58 Pulse Rate 75 04/25/24 14:58 Respiratory Rate 18 04/25/24 14:58 Blood Pressure 148/57 H 04/25/24 14:58 Pulse Oximetry 97 04/25/24 14:58 Temperature 98.0 F 04/25/24 18:02 Pulse Rate 55 L 04/25/24 22:42 Respiratory Rate 18 04/25/24 22:42 Blood Pressure 128/61 04/26/24 00:31 Pulse Oximetry 98 04/26/24 00:31 <Rosario Tan APRN - Last Filed: 04/25/24 15:38> Vital Signs Temperature 98.1 F 04/25/24 14:58 Pulse Rate 75 04/25/24 14:58 Respiratory Rate 18 04/25/24 14:58 Blood Pressure 148/57 H 04/25/24 14:58 Pulse Oximetry 97 04/25/24 14:58 Temperature 98.0 F 04/25/24 18:02 Pulse Rate 55 L 04/25/24 22:42 Respiratory Rate 18 04/25/24 22:42 Blood Pressure 128/61 04/26/24 00:31 Pulse Oximetry 98 04/26/24 00:31 <Jory Espinosa PA-C - Last Filed: 04/26/24 01:54> MDM - Dizziness MDM Narrative Medical decision making narrative: Patient presented to ED with several day history of dizziness/lightheadedness, feels different than her typical vertigo. Reports long history of vertigo but states this feels different. Has been constant over the last several days. Vital signs are stable upon arrival. Upon my evaluation, patient is neurologically intact. I do not appreciate focal deficits on exam aside from a slight gaze difference/inability to look far left though visual posadas remain intact. Orthostatic VS were evaluated and slightly positive with going from laying to sitting, though BP increased from sitting to standing. Fluids ordered. Attempted meclizine, however patient initially declined this. States it just makes her sleepy. Basic laboratory studies were obtained and unremarkable. No significant abnormalities noted. Stable electrolytes. Stable kidney function. EKG without ischemic changes. Borderline bradycardia, sinus rhythm. Troponin undetectable. Urinalysis is clear. Viral swabs negative. CT brain non con negative. Showed age-related findings. CTA of head/carotids unremarkable. No significant stenosis, no LVO. Chest x-ray is clear. Patient given fluids and was eventually agreeable to meclizine. However still reporting no change in lightheadedness. Still feeling very unsteady with ambula tion. Discussed case with Dr. Olea, neurology, recommended admission for MRI given intractable dizziness. Discussed case with Dr. Berg, hospitalist, discussed bradycardia may be causing some of the lightheadedness. Accepted admission to med/tele. Patient in agreement with plan and need for admission. <Jory Espinosa PA-C - Last Filed: 04/26/24 01:54> Medical Records Attestation: I reviewed the patient's medical records. <Jroy Espinosa PA-C - Last Filed: 04/26/24 01:54> Lab Data Attestation: I reviewed the patient's lab results. <Jory Espinosa PA-C - Last Filed: 04/26/24 01:54> Result diagrams: 04/25/24 15:39 04/25/24 15:39 <Rosario Tan APRN - Last Filed: 04/25/24 15:38> Labs: Lab Results 04/25/24 04/25/24 04/25/24 Range/Units 15:39 16:30 19:37 WBC 8.1 (4.5-10.0) K/mm3 RBC 4.84 (4.2-5.4) M/mm3 Hgb 13.6 (12.0-15.0) g/dL Hct 41.3 (37.0-47.0) % MCV 85.3 (80-100) fl MCH 28.1 (26-34) pg MCHC 32.9 (32-36) g/dl RDW 15.9 H (11.5-14.5) % Plt Count 233 (150-375) k/mm3 MPV 10.0 (7.4-10.4) fl Immature Gran % (Auto) 0.4 (0-0.5) % Neut % (Auto) 68.3 (45.5-73.1) % Lymph % (Auto) 23.5 (18.3-44.2) % [place] % (Auto) 6.4 (2.6-8.5) % Eos % (Auto) 1.0 (0-4.4) % Baso % (Auto) 0.4 (0.2-1.2) % Lymph # (Auto) 1.91 (0.9-3.2) K/mm3 [place] # (Auto) 0.5 (0.1-0.6) K/mm3 Eos # (Auto) 0.1 (0-0.3) K/mm3 Baso # (Auto) 0.0 (0.0-0.1) K/mm3 Abs Immat Gran (auto) 0.03 (0.00-0.031) K/mm3 Absolute Neuts (auto) 5.6 (1.3-6.7) K/mm3 Absolute Nucleated RBC 0.000 (0.0-0.012) K/mm3 Nucleated RBC % 0.0 (0.0-0.2) % PT 15.5 H (11.1-14.7) Seconds INR 1.2 APTT 34.8 (22.3-36.8) Seconds Sodium 137 (137-145) mmol/L Potassium 3.6 (3.4-5.0) mmol/L Chloride 98 (98-107) mmol/L Carbon Dioxide 33 H (22-30) mmol/L Anion Gap 6 (4-12) mmol/L BUN 23 H (7-17) mg/dL Creatinine 1.00 (0.7-1.0) mg/dL Estim Creat Clear Calc 40 ml/min Estimated GFR 53 L (59 - ) Glucose 125 H (65-110) mg/dL Calcium 8.8 (8.4-10.2) mg/dL Magnesium 2.1 (1.6-2.3) mg/dL Total Bilirubin 0.7 (0.2-1.3) mg/dL AST 18 (14-36) U/L ALT 20 (6-35) U/L Alkaline Phosphatase 90 (38-126) U/L Troponin I < 0.012 < 0.012 (0.000-0.034) ng/mL NT-Pro-B Natriuret Pep 514 H (19.9-100) pg/mL Total Protein 7.0 (6.3-8.2) g/dL Albumin 4.0 (3.5-5.1) g/dL Urine Color Yellow (Yellow) Urine Appearance Clear (Clear) Urine pH 7.5 (5.0-9.0) Ur Specific [place] 1.013 (1.001-1.035) Urine Protein Negative (Negative) mg/dL Urine Glucose (UA) Negative (Negative) mg/dL Urine Ketones Negative (Negative) mg/dL Ur Blood (Man) Negative (Negative) Urine Nitrate Negative (Negative) Urine Bilirubin Negative (Negative) Urine Urobilinogen 1.0 (<2.0) mg/dL Add Ur Microanalysis Reviewed Leukocyte Esterase Rfl 1+ H (Negative) ABDLUAZIZ/UL Urine RBC 0-2 (0-2) /hpf Urine WBC 0-5 (0-3) /hpf Ur Squamous Epith Cells None seen (Few) /hpf Urine Bacteria None seen /hpf Urine Casts 0-2 Influenza A (RT-PCR) Negative (Negative) Influenza B (RT-PCR) Negative (Negative) RSV (RT-PCR) Negative (Negative) SARS-CoV-2 RNA (RT-PCR) Negative (Negative) <Rosario Tan, PRODUCTION STAFF WORKER - Last Filed: 04/25/24 15:38> Lab Results 04/25/24 04/25/24 04/25/24 Range/Units 15:39 16:30 19:37 WBC 8.1 (4.5-10.0) K/mm3 RBC 4.84 (4.2-5.4) M/mm3 Hgb 13.6 (12.0-15.0) g/dL Hct 41.3 (37.0-47.0) % MCV 85.3 (80-100) fl MCH 28.1 (26-34) pg MCHC 32.9 (32-36) g/dl RDW 15.9 H (11.5-14.5) % Plt Count 233 (150-375) k/mm3 MPV 10.0 (7.4-10.4) fl Immature Gran % (Auto) 0.4 (0-0.5) % Neut % (Auto) 68.3 (45.5-73.1) % Lymph % (Auto) 23.5 (18.3-44.2) % [place] % (Auto) 6.4 (2.6-8.5) % Eos % (Auto) 1.0 (0-4.4) % Baso % (Auto) 0.4 (0.2-1.2) % Lymph # (Auto) 1.91 (0.9-3.2) K/mm3 [place] # (Auto) 0.5 (0.1-0.6) K/mm3 Eos # (Auto) 0.1 (0-0.3) K/mm3 Baso # (Auto) 0.0 (0.0-0.1) K/mm3 Abs Immat Gran (auto) 0.03 (0.00-0.031) K/mm3 Absolute Neuts (auto) 5.6 (1.3-6.7) K/mm3 Absolute Nucleated RBC 0.000 (0.0-0.012) K/mm3 Nucleated RBC % 0.0 (0.0-0.2) % PT 15.5 H (11.1-14.7) Seconds INR 1.2 APTT 34.8 (22.3-36.8) Seconds Sodium 137 (137-145) mmol/L Potassium 3.6 (3.4-5.0) mmol/L Chloride 98 (98-107) mmol/L Carbon Dioxide 33 H (22-30) mmol/L Anion Gap 6 (4-12) mmol/L BUN 23 H (7-17) mg/dL Creatinine 1.00 (0.7-1.0) mg/dL Estim Creat Clear Calc 40 ml/min Estimated GFR 53 L (59 - ) Glucose 125 H (65-110) mg/dL Calcium 8.8 (8.4-10.2) mg/dL Magnesium 2.1 (1.6-2.3) mg/dL Total Bilirubin 0.7 (0.2-1.3) mg/dL AST 18 (14-36) U/L ALT 20 (6-35) U/L Alkaline Phosphatase 90 (38-126) U/L Troponin I < 0.012 < 0.012 (0.000-0.034) ng/mL NT-Pro-B Natriuret Pep 514 H (19.9-100) pg/mL Total Protein 7.0 (6.3-8.2) g/dL Albumin 4.0 (3.5-5.1) g/dL Urine Color Yellow (Yellow) Urine Appearance Clear (Clear) Urine pH 7.5 (5.0-9.0) Ur Specific [place] 1.013 (1.001-1.035) Urine Protein Negative (Negative) mg/dL Urine Glucose (UA) Negative (Negative) mg/dL Urine Ketones Negative (Negative) mg/dL Ur Blood (Man) Negative (Negative) Urine Nitrate Negative (Negative) Urine Bilirubin Negative (Negative) Urine Urobilinogen 1.0 (<2.0) mg/dL Add Ur Microanalysis Reviewed Leukocyte Esterase Rfl 1+ H (Negative) ABDULAZIZ/UL Urine RBC 0-2 (0-2) /hpf Urine WBC 0-5 (0-3) /hpf Ur Squamous Epith Cells None seen (Few) /hpf Urine Bacteria None seen /hpf Urine Casts 0-2 Influenza A (RT-PCR) Negative (Negative) Influenza B (RT-PCR) Negative (Negative) RSV (RT-PCR) Negative (Negative) SARS-CoV-2 RNA (RT-PCR) Negative (Negative) <Jory Espinosa PA-C - Last Filed: 04/26/24 01:54> Imaging Data Attestation: I personally reviewed and interpreted this imaging study as follows: <FLORY Montaño Last Filed: 04/26/24 01:54> Radiologist's impression: ITS Impressions Chest X-Ray 04/25/24 15:49 IMPRESSION: 1. No acute cardiopulmonary disease. Head CT 04/25/24 16:17 IMPRESSION: 1. No acute intracranial process. 2. Age-related changes including mild diffuse on loss and mild scattered white matter hypoattenuation consistent with chronic small vessel ischemic disease. Head/Neck CTA 04/25/24 18:48 IMPRESSION: No large vessel intracranial occlusion, high-grade intracranial stenosis, or aneurysm. No carotid or vertebral artery occlusion, dissection, or significant stenosis. <FLORY Montaño Last Filed: 04/26/24 01:54> ECG Data EKG #1: Attestation: I personally reviewed and interpreted this ECG as follows: <FLORY Montaño Last Filed: 04/26/24 01:54> ECG completion date: 04/25/24 <Jory Espinosa PA-C - Last Filed: 04/26/24 01:54> ECG completion time: 15:33 <Jory Espinosa PA-C - Last Filed: 04/26/24 01:54> EKG Interpretation: normal rate (66), sinus rhythm, no ST changes and left axis <Jory Espinosa PA-C - Last Filed: 04/26/24 01:54> Discharge Plan Discharge Clinical Impression: Lightheadedness, Disequilibrium <Rosario Tan APRN - Last Filed: 04/25/24 15:38> Patient Disposition: Still a Patient <Rosario Tan APRN - Last Filed: 04/25/24 15:38> Condition: Stable <Rosario Tan APRN - Last Filed: 04/25/24 15:38>
[2024-04-25 15:48] LABS: Basophils Percent Auto 0.4 % (0.2-1.2); Eosinophils Absolute Auto 0.1 K/mm3 (0-0.3); Hematocrit 41.3 % (37.0-47.0); Hemoglobin 13.6 g/dL (12.0-15.0); Immature Granulocyte Absolute 0.03 K/mm3 (0.00-0.031); Immature Granulocyte Percent A 0.4 % (0-0.5); Lymphocytes Absolute Auto 1.91 K/mm3 (0.9-3.2); Lymphocytes Percent Auto 23.5 % (18.3-44.2); Mean Corpuscular HGB Conc 32.9 g/dl (32-36); Mean Corpuscular Hemoglobin 28.1 pg (26-34); Mean Corpuscular Volume 85.3 fl (80-100); Monocytes Absolute Auto 0.5 K/mm3 (0.1-0.6); Monocytes Percent Auto 6.4 % (2.6-8.5); Neutrophils Absolute Auto 5.6 K/mm3 (1.3-6.7); Neutrophils Percent Auto 68.3 % (45.5-73.1); Platelet Count Result 233 k/mm3 (150-375); Red Blood Count 4.84 M/mm3 (4.2-5.4); Red Cell Distribution Width 15.9 % (11.5-14.5); White Blood Count 8.1 K/mm3 (4.5-10.0)
[2024-04-25 15:58] LABS: Alanine Aminotransferase 20 U/L (6-35); Alkaline Phosphatase 90 U/L (38-126); Anion Gap 6 mmol/L (4-12); Aspartate Amino Transferase 18 U/L (14-36); Bilirubin,Total 0.7 mg/dL (0.2-1.3); Blood Urea Nitrogen 23 mg/dL (7-17); Calcium 8.8 mg/dL (8.4-10.2); Carbon Dioxide 33 mmol/L (22-30); Chloride 98 mmol/L (98-107); Estimated CRCL calculation 40 ml/min; Estimated Glomerular Filt Rate 53; Glucose 125 mg/dL (65-110); Potassium 3.6 mmol/L (3.4-5.0); Sodium 137 mmol/L (137-145)
[2024-04-25 15:59] LABS: INR 1.2; Prothrombin Time 15.5 Seconds (11.1-14.7)
[2024-04-25 16:00] LABS: Partial Thromboplastin Time 34.8 Seconds (22.3-36.8)
[2024-04-25 16:09] LABS: NT Pro B Type Natriuretic Pept 514 pg/mL (19.9-100); Troponin I < 0.012 ng/mL (0.000-0.034)
[2024-04-25 16:55] LABS: Add Urine Microscopic? YES; Appearance Urine Clear (Clear); Bacteria Urine None Seen /hpf; Bilirubin Urine Negative (Negative); Blood Urine Negative (Negative); Color Urine Yellow (Yellow); Glucose Urine UA Negative (Negative); Ketones Urine Negative (Negative); Leukocyte Esterase Ur 1+ LEU/UL (Negative); Need Manual Microscopic Reviewed; Nitrate Urine Negative (Negative); Non Pathogenic Casts 0-2; Protein Urine Negative (Negative); RBC Urine 0-2 /hpf (0-2); Specific Grav Ur 1.013 (1.001-1.035); Squamous Epithelial Cell Urine None Seen /hpf (Few); WBC Urine 0-5 /hpf (0-3); pH Urine 7.5 (5.0-9.0)
[2024-04-25 17:17] LABS: Influenza A QL RT-PCR Negative (Negative); Influenza B QL RT-PCR Negative (Negative); RSV RNA, RT-PCR Negative (Negative); SARS-CoV-2 RNA PCR Negative (Negative)
[2024-04-25] MEDS: SODIUM CHLORIDE 0.9% IV 1,000 ML 999 ML IV CONT (18:58)
--- NOTE | 2024-04-25 19:53 | ECG_ITS ---
Test Date: 2024-04-25 20:27:49 Measurements Intervals [place] Rate: 57 P: 26 AR: 147 QRS: -42 QRSD: 105 T: 54 QT: 446 QTc: 434 Interpretive Statements SINUS BRADYCARDIA LEFT AXIS DEVIATION [QRS AXIS < -30] POSSIBLE ANTERIOR MYOCARDIAL INFARCTION , PROBABLY OLD [30 ms Q WAVE IN V3/V4, OR R < 0.2 mV IN V4] Compared to ECG 04/25/2024 15:33:58 Sinus rhythm no longer present Myocardial infarct finding still present Electronically Signed On 04-26-2024 11:41:03 CDT by Jefferson Miles M.D.
[2024-04-25 20:04] LABS: Troponin I < 0.012 ng/mL (0.000-0.034)
[2024-04-25] MEDS: MECLIZINE HCL 25 MG TABLET PO (21:41)
--- NOTE | 2024-04-25 23:21 | PC.NURSE ---
Pt and pts sister came to ED after pt states she has had two falls within the last two days. She states when she fell her legs went weak and gave out , today pt hit the back of her head when she fell but denies LOC. Pt states she is not on blood thinners. Pt states she was dx with a UTI two days ago at an urgent care and has taken 3 doses of macrobid
[2024-04-26] VITALS (14 sets, daily range): BP systolic 120–156; BP diastolic 43–68; PULSE 55–69; RESP 12–20; TEMP 36.1–36.7; O2SAT 95–98
--- NOTE | 2024-04-26 | ECHO_ITS ---
Patient Info Name: Nichole Carmona Age: 83 years : 1940 Gender: Female Ht: 63 in Wt: 184 lbs BSA: 1.96 m2 HR: 63 bpm BP: 123 / 50 mmHg Technical Quality: Fair Exam Date: 04/26/2024 1:23 PM Exam Location: Echo Lab Patient Status: Outpatient Admit Date: 04/26/2024 Staff Ordering Physician: Manuela Sorenson APRN Mushroom Cutter: Abida Fontanez RDCS Attending Provider: Manuela Sorenson APRN Exam Type: CA echo doppler color flow Study Info Indications R42 - Dizziness and giddiness R55 - Syncope and collapse Complete two-dimensional, color flow and Doppler transthoracic echocardiogram is performed. Summary 1. Complete two-dimensional, color flow and Doppler transthoracic echocardiogram is performed. 2. The left ventricle is normal in size and systolic function. The LVEF is visually estimated to be 60-65%. There are no regional wall motion abnormalities. Left Ventricle The left ventricle is normal in size and systolic function. The LVEF is visually estimated to be 60-65%. There are no regional wall motion abnormalities. Right Ventricle The right ventricle is normal in size and systolic function. Left Atria The left atrium is mildly dilated. Right Atria The right atrial is normal in size. Aortic Valve The aortic valve is probably trileaflet. It opens well and there is no aortic regurgitation. Pulmonic Valve The pulmonic valve is not visualized. Mitral Valve The mitral valve leaflets are sclerotic. There is moderate posterior mitral annular calcification. There is mild mitral regurgitation. Tricuspid Valve The tricuspid valve is normal. There is trace tricuspid regurgitation. Pericardium/Pleural Pericardium is normal in appearance with no evidence for significant pericardial effusion. Inferior Vena Cava Normal inferior vena cava with >50% collapse upon inspiration consistent with normal right atrial pressure, 3 mmHg. Left Ventricular Outflow Tract Name Value Normal LVOT 2D LVOT Diameter 2.0 cm LVOT Doppler LVOT Peak Gradient 7 mmHg LVOT Mean Gradient 3 mmHg LVOT VTI 28 cm LVOT VTI/AV VTI Ratio 0.6 LVOT Stroke Volume 89 ml LVOT CO 4.9 l/min LVOT CI 2.5 l/min/m2 Pulmonic Valve Name Value Normal PV Doppler PV Peak Gradient 3 mmHg Mitral Valve Name Value Normal MV Doppler MV Decel [place] 515 cm/s2 MV PHT 75 ms MV Area (PHT) 2.9 cm2 4.0-5.0 MV Diastolic Function MV E Peak Velocity 134 cm/s MV A Peak Velocity 131 cm/s MV E/A 1.0 MV Decel Time 260 ms Tricuspid Valve Name Value Normal TV Regurgitation Doppler TR Peak Velocity 268 cm/s TR Peak Gradient 26 mmHg Estimated PAP/RSVP RA Pressure 3 mmHg <=5 PA Systolic Pressure 32 mmHg <36 RV Systolic Pressure 32 mmHg <36 Aorta Name Value Normal Ascending Aorta Ao Root Diameter (MM) 2.2 cm Ao Root Diam Index (MM) 1.1 cm/m2 Aortic Valve Name Value Normal AV Doppler AV Peak Velocity 242 cm/s AV Peak Gradient 24 mmHg AV Mean Gradient 10 mmHg AV VTI 48 cm AV Area (Cont Eq VTI) 1.9 cm2 >=3.0 AV Area (Cont Eq Benjie) 1.9 cm2 AV Regurgitation 2D LVOT Area 3.2 cm2 Ventricles Name Value Normal LV Dimensions 2D/MM IVS Diastolic Thickness (2D) 0.8 cm 0.6-1.0 IVS Diastole Thickness (MM) 0.8 cm 0.6-0.9 LVID Diastole (2D) 5.4 cm 3.8-5.2 LVID Diastole (MM) 5.1 cm 3.8-5.2 LVIW Diastolic Thickness (2D) 0.7 cm 0.6-0.9 LVIW Diastolic Thickness (MM) 0.8 cm 0.6-0.9 LVID Systole (2D) 3.4 cm 2.2-3.5 LVID Systole (MM) 3.1 cm 2.2-3.5 LVOT Diameter 2.0 cm LV Mass (2D Cubed) 155.32 g 67.00-162.00 LV Mass Index (2D Cubed) 79 g/m2 43-95 Relative Wall Thickness (2D) 0.27 LV Mass (MM Cubed) 142.51 g 67.00-162.00 LV Mass Index (MM Cubed) 73 g/m2 43-95 Relative Wall Thickness (MM) 0.31 LV Fractional Shortening/Ejection Fraction 2D/MM LV Fractional Shortening (2D) 38 % 27-45 LV Fractional Shortening (MM) 39 % 27-45 LV EF (MM Teicholz) 70 % 54-74 LV EF (2D Teicholz) 67 % 54-74 LV Diastolic Volume (4C MOD) 69 ml LV EF (4C MOD) 62 % LV Diastolic Volume (2C MOD) 64 ml LV EF (2C MOD) 63 % LV Diastolic Volume (BP MOD) 69 ml 46-106 LV Diastolic Volume Index (BP MOD) 35 ml/m2 29-61 LV Systolic Volume (BP MOD) 26 ml 14-42 LV Systolic Volume Index (BP MOD) 13 ml/m2 8-24 LV EF (BP MOD) 63 % 54-74 LV Diastolic Length (4C) 6.7 cm LV Systolic Length (4C) 5.8 cm LV Stroke Volume (4C MOD) 43 ml Atria Name Value Normal LA Dimensions LA Dimension (MM) 4.6 cm 2.7-3.8 LA Volume (4C A-L) 70 ml LA Volume (BP A-L) 69 ml RA Dimensions RA Area (4C) 14.0 cm2 <=18.0 Report Signatures
[2024-04-26 00:31] LABS: Magnesium 2.1 mg/dL (1.6-2.3)
--- NOTE | 2024-04-26 02:32 | ADMGEN ---
This patient, Nichole Carmona, was admitted to [facility] Surg Room 306-02. Patient/family oriented to hospital policies and general routines including ID bracelet, bed and alarms, visiting hours, pain management, procedures, bathroom and other care routines, personal items, smoking policy, room service/diet, and visiting hours. Information on how to activate the Rapid Response Team has been discussed. Patient/Family are encouraged to report perceived risks to care and to ask questions if they do not understand what they are told or what they should do.
[2024-04-26] MEDS: ACETAMINOPHEN 325 MG TABLET 650 MG PO (03:56)
--- NOTE | 2024-04-26 07:55 | P.HP_ITS ---
H&P: HPI History of Present Illness Date/Time: 04/26/24 07:55 Chief Complaint: Dizziness Narrative: Neurologic examination did not reveal any evidence for brainstem pathology. CT scan and CT angiogram head and neck were reviewed and these did not show any abnormality. Subsequently an MRI of the brain was also performed which did not show any abnormalities. I believe that her symptoms could be a manifestation of different way of presentation of peripheral vascular pathology. She does have history of vertigo and sensory neuro hearing loss. She will require vestibular therapy which were introduced with the help of physical therapist. With regard to the peripheral neuropathy I would be glad to see her in my office and help her with regard to investigations and symptoms management. I have told her the limited options we have for these conditions. Thank you very much Nichole Gamino is an 83 year old female hx vertigo and diabetes and peripheral neuropathy, who presented to the hospital with dizziness and lightheadedness. She has a long history of vertigo and lightheadedness that included meniere's disease. Generally episodes of menieres have been preceded by episodes of tinnitis and hearing loss, which is different than this episode. This episode was described as a combination of lightheadedness and disequilibrium which she has noticed bilaterally. No chest pain or shortness of breath. Had been told recently she had a murmur. She has previously received physical therapy for symptoms of vertigo. Also has a history of afib on eliquis and has significant peripheral neuropathy in both her upper and lower extremities. She had a CT angiogram and brain MRI which had no acute findings or large vessel occlusions. [facility] Past Medical History Medical History (Updated 04/27/24 @ 06:35 by Manuela Sorenosn APRN) Allergic rhinitis Atherosclerosis of aorta Atherosclerosis of [place] coronary artery of [place] heart without angina pectoris Cerebral atherosclerosis Chronic kidney disease, stage 3a COPD (chronic obstructive pulmonary disease) Current use of buttermaker helper anticoagulation Diabetic neuropathy Diabetic polyneuropathy associated with type 2 diabetes mellitus DISH (diffuse idiopathic skeletal hyperostosis) Diverticulosis of intestine, part unspecified, without perforation or abscess with bleeding Dizziness Exudative age-related macular degeneration, right eye, with active choroidal neovascularization Gait abnormality HTN (hypertension), benign Hypokalemia Irritable bowel syndrome with both constipation and diarrhea Lumbar back pain with radiculopathy affecting lower extremity MGUS (monoclonal gammopathy of unknown significance) Mild intermittent asthma without complication Mixed hyperlipidemia Neurogenic claudication PAF (paroxysmal atrial fibrillation) PMR (polymyalgia rheumatica) Psychophysiological insomnia Sensorineural hearing loss Trigger ring finger of left hand Tubulovillous adenoma of colon Vitamin D deficiency, unspecified Surgical History Surgical History History of total abdominal hysterectomy Social History Social History Social History: Smoking status: Never smoker Second hand tobacco smoke exposure: No Alcohol intake: never Substance use: never Substance use type: does not use Do You Feel Safe in your Home?: Yes Lack of Transportation: No Lack of Food: Never True Current Housing: I Have Housing Concerned About Future Housing: No Difficulty Paying Gas/Electric Bills: No Difficulty Paying for Meds: No Currently Unemployed: No Education: Associate Degree Difficulty w/ Childcare or Family Care: No Living arrangements: with family Occupation/Education: retired Gender identity (if verbalized by the patient): Female Sexual Orientation (if Verbalized by the Patient): Straight or Heterosexual Spiritual care concerns: No Meds Home Medications and Allergies Home Medications Medication Instructions Recorded Confirmed Type cholecalciferol (vitamin D3) 50 2,000 unit PO DAILY 05/09/19 04/26/24 History mcg (2,000 unit) tablet vit C 250 mg-vit E 90 mg-zinc 40 1 tablet PO ONCE 02/05/20 04/26/24 History mg-copper 1 [id number] capsule (PreserVision AREDS-2) omega-3 fatty acids 1,000 mg 1,000 mg PO DAILY 12/15/20 04/26/24 History capsule (Fish Oil Concentrate) cetirizine 10 mg tablet 10 mg PO DAILY PRN allergy 03/05/21 04/26/24 History vitamin B complex 1 tablet PO DAILY 03/05/21 04/26/24 History blood sugar diagnostic (Contour #200 strips 02/11/22 04/26/24 Rx Next Test Strips) lancets (Microlet Lancet) ##200 05/05/22 04/26/24 Rx apixaban 5 mg tablet (Eliquis) 5 mg PO BID 06/24/22 04/26/24 History triamterene 37.5 See Rx Instructions .Route 01/26/23 04/26/24 Rx mg-hydrochlorothiazide 25 mg .COMPLEX #180 caps capsule furosemide 20 mg tablet (Lasix) 20 mg PO PRN PRN Edema 04/26/24 04/26/24 History rosuvastatin 5 mg tablet (Crestor) 5 mg PO BID 04/26/24 04/26/24 History semaglutide 0.25 mg or 0.5 mg (2 0.5 mg subcut WEEKLY 04/26/24 04/26/24 History mg/3 mL) subcutaneous pen injector (Ozempic) Allergies Allergy/AdvReac Type Severity Reaction Status Date / Time propoxyphene Allergy Mild sob Verified 06/24/22 12:26 belladonna alkaloids Allergy Unknown sob Verified 06/24/22 12:26 Cephalosporins Allergy Unknown rash Verified 06/24/22 12:26 ciprofloxacin Allergy Unknown rash Verified 06/24/22 12:26 gentamicin Allergy Unknown swelling Verified 06/24/22 12:26 monosodium glutamate Allergy Unknown MAKES Verified 06/24/22 12:26 HEART RACE Penicillins Allergy Unknown rash Verified 06/24/22 12:26 pentazocine Allergy Unknown rash Verified 06/24/22 12:26 Sulfa (Sulfonamide Allergy Unknown rash and Verified 06/24/22 12:26 Antibiotics) cough Quinolones AdvReac Unknown BAD Verified 06/24/22 12:26 DREAMES & SOMETIMES HUGHES morphine AdvReac Confusion Verified 04/26/24 02:40 PENTAZOCINE LACTATE Allergy Unknown confusion Uncoded 06/24/22 12:26 Vital Signs Vital Signs - 24 hr 04/25/24 14:58 04/25/24 18:54 04/25/24 16:31 Temperature 98.1 F 97.6 F Pulse Rate 75 63 68 Respiratory Rate 18 19 Blood Pressure 148/57 H 175/58 H 181/67 H Pulse Oximetry 97 98 04/25/24 17:32 04/25/24 18:02 04/25/24 18:55 Temperature 97.9 F 98.0 F Pulse Rate 87 62 69 Respiratory Rate 20 17 Blood Pressure 136/53 L 148/59 H 145/87 H Pulse Oximetry 100 98 04/25/24 18:55 04/25/24 19:01 04/25/24 20:25 Temperature Pulse Rate 69 60 Respiratory Rate 13 14 Blood Pressure 168/80 H 163/62 H Pulse Oximetry 100 04/25/24 22:00 04/25/24 22:42 04/26/24 00:25 Temperature Pulse Rate 58 L 55 L Respiratory Rate 19 18 Blood Pressure 154/59 H 137/51 L Pulse Oximetry 97 96 96 04/26/24 00:31 04/26/24 01:57 04/26/24 01:31 Temperature Pulse Rate 55 L 59 L Respiratory Rate 18 19 Blood Pressure 128/61 156/68 H 156/58 H Pulse Oximetry 98 95 04/26/24 02:01 04/26/24 04:00 04/26/24 06:00 Temperature 96.9 F L Pulse Rate 55 L 61 63 Respiratory Rate 20 12 Blood Pressure 140/62 123/50 L Pulse Oximetry 96 Exam Narrative: General - Awake and alert. No acute distress Eyes - PERRLA, EOM intact ENT - No thrush, No erythema Neck - No noticeable or palpable swelling Lymph Nodes - No lymphadenopathy Cardiovascular - RRR no m/r/g, no JVD Lungs: Clear to auscultation, No wheezing, use of accessory muscles, no crackles or wheezes. Skin - Skin warm and dry, no wounds or rashes Abdomen - Normal bowel sounds, abdomen soft and nontender Extremities - No edema, cyanosis or clubbing Musculoskeletal - 5/5 strength, normal range of motion, no swollen or erythematous joints. Neurological ? Alert and oriented x 3, CN 2-12 grossly intact. Decreased sensation to bilateral hands and to legs that starts slightly above the knees Psych: Normal mood and affect H&P: Results Labs Labs: Short CBC 04/25/24 Range/Units 15:39 WBC 8.1 (4.5-10.0) K/mm3 Hgb 13.6 (12.0-15.0) g/dL Hct 41.3 (37.0-47.0) % Plt Count 233 (150-375) k/mm3 BMP 04/25/24 15:39 Sodium 137 Potassium 3.6 Chloride 98 Carbon Dioxide 33 H BUN 23 H Creatinine 1.00 Glucose 125 H Calcium 8.8 Cardiac Enzymes 04/25/24 04/25/24 Range/Units 15:39 19:37 Troponin I < 0.012 < 0.012 (0.000-0.034) ng/mL Liver Function 04/25/24 Range/Units 15:39 Total Bilirubin 0.7 (0.2-1.3) mg/dL AST 18 (14-36) U/L ALT 20 (6-35) U/L Alkaline Phosphatase 90 (38-126) U/L Albumin 4.0 (3.5-5.1) g/dL Urine 04/25/24 Range/Units 16:30 Urine Color Yellow (Yellow) Urine Appearance Clear (Clear) Urine pH 7.5 (5.0-9.0) Ur Specific [place] 1.013 (1.001-1.035) Urine Protein Negative (Negative) mg/dL Urine Glucose (UA) Negative (Negative) mg/dL Assessment and Plan Assessment and plan (1) Dizziness: Code(s): R42 - Dizziness and giddiness Status: Acute Assessment and Plan: CTA and brain MRI no acute findings 04/26 TTE left ventricle is normal in size and systolic function. The LVEF is visually estimated to be 60-65%. There are no regional wall motion abnormalities. --PT/OT --Holding diuretics today, resume as tolerated. Check orthostatics --Monitor on tele --Neurology consulted (2) Diabetes mellitus with neuropathy: Code(s): E11.40 - Type 2 diabetes mellitus with diabetic neuropathy, unspecified Status: Acute Assessment and Plan: Neurology consulted Check B12 SSI (3) History of atrial fibrillation: Code(s): Z86.79 - Personal history of other diseases of the circulatory system Status: Acute Assessment and Plan: Continue anticoagulation Quality VTE Prophylaxis VTE prophylaxis: pharmacologic ordered Hospitalist MIPS Advance Care Plan I have confirmed that the patient's Advanced Care Plan is present, code status is documented, or surrogate decision maker is listed in patient medical record.: Yes Medication Reconciliation I have utilized all available resources to obtain, update and review the patients current medications (includes all prescriptions, OTC, herbals, cannabis, and nutritional supplements).: Yes
[2024-04-26 08:28] LABS: Glucose Point of Care 111 mg/dl (65-105)
[2024-04-26] MEDS: OPTI-GEN TAB 1 TABLET PO (09:01)
[2024-04-26] MEDS: VITAMIN B COMPLEX CAPSULE 1 CAP PO (09:01)
[2024-04-26 11:49] LABS: Glucose Point of Care 115 mg/dl (65-105)
[2024-04-26 16:50] LABS: Glucose Point of Care 172 mg/dl (65-105)
--- NOTE | 2024-04-26 17:27 | P.CONNEU_ITS ---
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 Given the history of diabetes mellitus of longstanding a possibility of brainstem pathology would be considered in the differential diagnosis. However neurologic examination did not reveal any focal deficit. orthostatic blood pressures should be checked and any cardiac evaluation will be appropriate. (3) Diabetes mellitus with neuropathy: Code(s): E11.40 - Type 2 diabetes mellitus with diabetic neuropathy, unspecified Status: Acute Plan Neurologic examination did not reveal any evidence for brainstem pathology. CT scan and CT angiogram head and neck were reviewed and these did not show any abnormality. Subsequently an MRI of the brain was also performed which did not show any abnormalities. I believe that her symptoms could be a manifestation of different way of presentation of peripheral vascular pathology. She does have history of vertigo and sensory neuro hearing loss. She will require vestibular therapy which were introduced with the help of physical therapist. With regard to the peripheral neuropathy I would be glad to see her in my office and help her with regard to investigations and symptoms management. I have told her the limited options we have for these conditions. Thank you very much Consult date: 04/26/24 HPI: Nichole Carmona is a 83 year old female history of diabetes mellitus and vertigo and diabetic peripheral neuropathy presents to the hospital with the onset of combination of dizziness and lightheadedness. She states that is different than having vertigo. She does not know how to exactly describe it is different than having a sense of rotation. She does admit that to being under lot of stress because 1 of her siblings . She comes from a family of long lived family members. She has a history of atrial fibrillation and she is on Eliquis and she also has diabetes mellitus and chronic kidney disease and some history of hearing loss a CT scan of brain was performed did not show any abnormality. CT angiogram of the head and neck was also performed which did not show any large vessel occlusion. She denies any diplopia or difficulty speech or swallowing or any weakness in upper lower limbs. Symptoms started 5 6 days ago came on rather suddenly but bothersome and hence he decided to come to the hospital. No headache and in fact she denies any history of migraine. no recent febrile illness. No history of head trauma. No fall injuries. In addition to above she also has complaints of numbness and tingling in her both upper and lower limbs. These are in the gloves and stocking pattern and she states that she has been thinking about getting some help about these and she so glad to see me because he thought that I was here to see her regarding a peripheral neuropathy. She was surprised to hear that I could also look into the her dizziness. Review of Systems Review of Systems: All systems reviewed & are unremarkable except as noted in HPI and below PMFSH Past Medical History Medical History (Updated 04/26/24 @ 17:33 by Ottoniel Schultz MD) Allergic rhinitis Atherosclerosis of aorta Atherosclerosis of [place] coronary artery of [place] heart without angina pectoris Cerebral atherosclerosis Chronic kidney disease, stage 3a COPD (chronic obstructive pulmonary disease) Current use of retirement anticoagulation Diabetic neuropathy Diabetic polyneuropathy associated with type 2 diabetes mellitus DISH (diffuse idiopathic skeletal hyperostosis) Diverticulosis of intestine, part unspecified, without perforation or abscess with bleeding Dizziness Exudative age-related macular degeneration, right eye, with active choroidal neovascularization Gait abnormality HTN (hypertension), benign Hypokalemia Irritable bowel syndrome with both constipation and diarrhea Lumbar back pain with radiculopathy affecting lower extremity MGUS (monoclonal gammopathy of unknown significance) Mild intermittent asthma without complication Mixed hyperlipidemia Neurogenic claudication PAF (paroxysmal atrial fibrillation) PMR (polymyalgia rheumatica) Psychophysiological insomnia Sensorineural hearing loss Trigger ring finger of left hand Tubulovillous adenoma of colon Vitamin D deficiency, unspecified Surgical History Surgical History History of total abdominal hysterectomy Social History Social History Social History: Smoking status: Never smoker Second hand tobacco smoke exposure: No Alcohol intake: never Substance use: never Substance use type: does not use Do You Feel Safe in your Home?: Yes Lack of Transportation: No Lack of Food: Never True Current Housing: I Have Housing Concerned About Future Housing: No Difficulty Paying Gas/Electric Bills: No Difficulty Paying for Meds: No Currently Unemployed: No Education: Associate Degree Difficulty w/ Childcare or Family Care: No Living arrangements: with family Occupation/Education: retired Gender identity (if verbalized by the patient): Female Sexual Orientation (if Verbalized by the Patient): Straight or Heterosexual Spiritual care concerns: No Meds Home Medications and Allergies Home Medications Medication Instructions Recorded Confirmed Type cholecalciferol (vitamin D3) 50 2,000 unit PO DAILY 05/09/19 04/26/24 History mcg (2,000 unit) tablet vit C 250 mg-vit E 90 mg-zinc 40 1 tablet PO ONCE 02/05/20 04/26/24 History mg-copper 1 [id number] capsule (PreserVision AREDS-2) omega-3 fatty acids 1,000 mg 1,000 mg PO DAILY 12/15/20 04/26/24 History capsule (Fish Oil Concentrate) cetirizine 10 mg tablet 10 mg PO DAILY PRN allergy 03/05/21 04/26/24 History vitamin B complex 1 tablet PO DAILY 03/05/21 04/26/24 History blood sugar diagnostic (Contour #200 strips 02/11/22 04/26/24 Rx Next Test Strips) lancets (Microlet Lancet) ##200 05/05/22 04/26/24 Rx apixaban 5 mg tablet (Eliquis) 5 mg PO BID 06/24/22 04/26/24 History triamterene 37.5 See Rx Instructions .Route 01/26/23 04/26/24 Rx mg-hydrochlorothiazide 25 mg .COMPLEX #180 caps capsule furosemide 20 mg tablet (Lasix) 20 mg PO PRN PRN Edema 04/26/24 04/26/24 History rosuvastatin 5 mg tablet (Crestor) 5 mg PO BID 04/26/24 04/26/24 History semaglutide 0.25 mg or 0.5 mg (2 0.5 mg subcut WEEKLY 04/26/24 04/26/24 History mg/3 mL) subcutaneous pen injector (Ozempic) Allergies Allergy/AdvReac Type Severity Reaction Status Date / Time propoxyphene Allergy Mild sob Verified 06/24/22 12:26 belladonna alkaloids Allergy Unknown sob Verified 06/24/22 12:26 Cephalosporins Allergy Unknown rash Verified 06/24/22 12:26 ciprofloxacin Allergy Unknown rash Verified 06/24/22 12:26 gentamicin Allergy Unknown swelling Verified 06/24/22 12:26 monosodium glutamate Allergy Unknown MAKES Verified 06/24/22 12:26 HEART RACE Penicillins Allergy Unknown rash Verified 06/24/22 12:26 pentazocine Allergy Unknown rash Verified 06/24/22 12:26 Sulfa (Sulfonamide Allergy Unknown rash and Verified 06/24/22 12:26 Antibiotics) cough Quinolones AdvReac Unknown BAD Verified 06/24/22 12:26 DREAMES & SOMETIMES HUGHES morphine AdvReac Confusion Verified 04/26/24 02:40 PENTAZOCINE LACTATE Allergy Unknown confusion Uncoded 06/24/22 12:26 Vital Signs Vital Signs - 24 hr 04/25/24 18:54 04/25/24 17:32 04/25/24 18:02 Temperature 97.9 F 98.0 F Pulse Rate 63 87 62 Respiratory Rate 20 17 Blood Pressure 175/58 H 136/53 L 148/59 H Pulse Oximetry 100 98 Oxygen Delivery 04/25/24 18:55 04/25/24 18:55 04/25/24 19:01 Temperature Pulse Rate 69 69 Respiratory Rate 13 Blood Pressure 145/87 H 168/80 H 163/62 H Pulse Oximetry Oxygen Delivery 04/25/24 20:25 04/25/24 22:00 04/25/24 22:42 Temperature Pulse Rate 60 58 L 55 L Respiratory Rate 14 19 18 Blood Pressure 154/59 H Pulse Oximetry 100 97 96 Oxygen Delivery 04/26/24 00:25 04/26/24 00:31 04/26/24 01:57 Temperature Pulse Rate 55 L Respiratory Rate 18 Blood Pressure 137/51 L 128/61 156/68 H Pulse Oximetry 96 98 Oxygen Delivery 04/26/24 01:31 04/26/24 02:01 04/26/24 04:00 Temperature Pulse Rate 59 L 55 L 61 Respiratory Rate 19 20 Blood Pressure 156/58 H 140/62 Pulse Oximetry 95 Oxygen Delivery 04/26/24 06:00 04/26/24 09:01 04/26/24 08:02 Temperature 96.9 F L Pulse Rate 63 58 L Respiratory Rate 12 14 Blood Pressure 123/50 L Pulse Oximetry 96 96 Oxygen Delivery Room Air 04/26/24 12:01 04/26/24 13:54 04/26/24 15:04 Temperature 98.1 F Pulse Rate 59 L 59 L Respiratory Rate 16 Blood Pressure 120/43 L Pulse Oximetry 98 Oxygen Delivery Room Air 04/26/24 16:02 Temperature Pulse Rate 66 Respiratory Rate Blood Pressure Pulse Oximetry Oxygen Delivery Exam Const: General: cooperative, well developed and alert Orientation/consciousness: patient oriented x3 HENMT: Head: atraumatic Eyes: Alignment and Position: position normal Pupils: Equal, round and reactive pupils present EOM: EOMs intact bilaterally Neck: Neck: supple Resp: Effort & Inspection: normal respiratory effort Neuro: General: patient oriented x3 Cranial nerves: Yes CN's II-XII intact bilaterally, Yes facial sensation intact/muscles of mastication intact, Yes Equal, round and reactive pupils present, Yes facial symmetry and Yes Midline tongue present Cognition (Neuro): normal cognition Speech: normal speech Gait exam (Neuro): Normal gait present Motor exam (neuro): 5/5 motor strength present throughout Coordination: [id number] test normal and Normal rapid alternating movements of the distal upper extremity present (Neuro) Other: Decreased sense of vibration in both lower limbs. Deep tendon reflexes are decreased at knees and ankles. No trophic changes noted in the lower limbs. Extrem: General: normal to inspection Results Labs 04/25/24 15:39 04/25/24 15:39 Labs: Cardiac Enzymes 04/25/24 Range/Units 19:37 Troponin I < 0.012 (0.000-0.034) ng/mL
[2024-04-26 23:30] LABS: Glucose Point of Care 184 mg/dl (65-105)
[2024-04-27] VITALS (7 sets, daily range): BP systolic 118–139; BP diastolic 45–67; PULSE 54–73; RESP 12–16; TEMP 36.4–36.6; O2SAT 97–100
[2024-04-27 06:53] LABS: Basophils Percent Auto 0.4 % (0.2-1.2); Eosinophils Absolute Auto 0.2 K/mm3 (0-0.3); Eosinophils Percent Auto 2.1 % (0-4.4); Hematocrit 39.8 % (37.0-47.0); Hemoglobin 12.6 g/dL (12.0-15.0); Immature Granulocyte Absolute 0.01 K/mm3 (0.00-0.031); Immature Granulocyte Percent A 0.1 % (0-0.5); Lymphocytes Absolute Auto 1.65 K/mm3 (0.9-3.2); Lymphocytes Percent Auto 23.5 % (18.3-44.2); Mean Corpuscular HGB Conc 31.7 g/dl (32-36); Mean Corpuscular Hemoglobin 27.8 pg (26-34); Mean Corpuscular Volume 87.9 fl (80-100); Mean Platelet Volume 9.4 fl (7.4-10.4); Monocytes Absolute Auto 0.5 K/mm3 (0.1-0.6); Monocytes Percent Auto 7.5 % (2.6-8.5); Neutrophils Absolute Auto 4.7 K/mm3 (1.3-6.7); Neutrophils Percent Auto 66.4 % (45.5-73.1); Platelet Count Result 194 k/mm3 (150-375); Red Blood Count 4.53 M/mm3 (4.2-5.4); Red Cell Distribution Width 16.3 % (11.5-14.5)
[2024-04-27 07:07] LABS: Anion Gap 5 mmol/L (4-12); Blood Urea Nitrogen 23 mg/dL (7-17); Calcium 8.8 mg/dL (8.4-10.2); Carbon Dioxide 33 mmol/L (22-30); Chloride 101 mmol/L (98-107); Estimated CRCL calculation 49 ml/min; Estimated Glomerular Filt Rate > 60; Glucose 110 mg/dL (65-110); Sodium 139 mmol/L (137-145)
[2024-04-27 08:08] LABS: Glucose Point of Care 105 mg/dl (65-105)
[2024-04-27 08:10] LABS: Folic Acid 11.2 ng/mL (2.76->20)
[2024-04-27] MEDS: CHOLECALCIFEROL 1,000 UNITS TABLET 2000 UNITS PO (08:17)
[2024-04-27] MEDS: ROSUVASTATIN 5 MG TABLET PO (08:17)
[2024-04-27] MEDS: OPTI-GEN TAB 1 TABLET PO (08:17)
[2024-04-27] MEDS: APIXABAN 5 MG TABLET PO (08:17)
[2024-04-27] MEDS: VITAMIN B COMPLEX CAPSULE 1 CAP PO (08:18)
[2024-04-27 11:57] LABS: Glucose Point of Care 136 mg/dl (65-105)
--- NOTE | 2024-04-27 13:45 | PM.DS ---
DS: Admitting Diagnosis Discharge Date 04/27/24 Admitting Diagnosis Dizziness, Acute on Chronic DS: Discharge Diagnosis Discharge Diagnosis (1) Dizziness: Code(s): R42 - Dizziness and giddiness Status: Acute Assessment and Plan: CTA and brain MRI with no acute findings. 04/26 TTE left ventricle is normal in size and systolic function. The LVEF is visually estimated to be 60-65%. There are no regional wall motion abnormalities. --Worked with PT/OT and safe for home discharge. --A-Fib well controlled during hospitalization. -- Orthostatic vitals wnl. -- Labs fairly wnl. --Seen by Neurology and pt to follow-up outpatient for further mg. -- States symptoms have been there on and off for a while and will just have to learn to manage it with safety measures at home. -- States feels good and wants to be discharged today. --Encouraged with walker use, slow transfer from sitting to ambulation. (2) Diabetes mellitus with neuropathy: Code(s): E11.40 - Type 2 diabetes mellitus with diabetic neuropathy, unspecified Status: Acute Assessment and Plan: - Seen by Neurology and cleared for discharge home. - B12 wnl. - BG well controlled inpatient. - Ozempic resumed prior to discharge. (3) History of atrial fibrillation: Code(s): Z86.79 - Personal history of other diseases of the circulatory system Status: Acute Assessment and Plan: - Chronic and remained controlled inpatient. - Continued on anticoagulation with Apixaban. - Rate well controlled inpatient. - Pt not on rate control medication at home. Plan Discharge Home on self care. DS: Summary Hospital Course Reason for hospitalization: Dizziness and Giddiness, Acute on Chronic. Hospital Course: Patient presented to the ER with reports of worsening dizziness at home. -- CTA and brain MRI showed no acute findings. 04/26 TTE showed left ventricle is normal in size and systolic function. The LVEF is visually estimated to be 60-65%. There are no regional wall motion abnormalities. -- She was seen by Neurologist and her symptoms were believed could be a manifestation of different way of presentation of peripheral vascular pathology. She does have history of vertigo and sensory neuro hearing loss. She required vestibular therapy which were introduced with the help of physical therapist. With regard to the peripheral neuropathy, the neurologist recommended to see her in the office and help her with regard to investigations and symptoms management. She was informed of the limited options for treatment of these conditions. --Worked with PT/OT and was cleared for safe for home discharge. --A-Fib well controlled during hospitalization. -- Orthostatic vitals wnl. -- Labs were fairly wnl. -- Patient reported symptoms have been there on and off for a while and will just have to learn to manage it with safety measures at home. -- States feels good and wants to be discharged today. --Encouraged with walker use and slow transfer from lying down to sitting to ambulation. --Patient medically stable for discharge with no acute distress noted or reported prior to discharge. Status at Discharge Cognitive/behavioral status at discharge: Pleasant and co-operative Functional status at discharge: uses cane/walker Overall status at discharge: patient is progressing back to baseline Time Spent with Patient Time attestation: Total time spent providing and/or coordinating discharge services: Time spent: Greater than 30 minutes Exam Narrative: General - Awake and alert. No acute distress Eyes - PERRLA, EOM intact ENT - No thrush, No erythema Neck - No noticeable or palpable swelling Lymph Nodes - No lymphadenopathy Cardiovascular - RRR no m/r/g, no JVD Lungs: Clear to auscultation, No wheezing, use of accessory muscles, no crackles or wheezes. Skin - Skin warm and dry, no wounds or rashes Abdomen - Normal bowel sounds, abdomen soft and nontender Extremities - No edema, cyanosis or clubbing Musculoskeletal - 5/5 strength, normal range of motion, no swollen or erythematous joints. Neurological ? Alert and oriented x 3, CN 2-12 grossly intact. Decreased sensation to bilateral hands and to legs that starts slightly above the knees Psych: Normal mood and affect Const: Other: General - Awake and alert. No acute distress Eyes - PERRLA, EOM intact ENT - No thrush, No erythema Neck - No noticeable or palpable swelling Lymph Nodes - No lymphadenopathy Cardiovascular - Irregularly irregular, no murmurs, Lungs: Clear to auscultation, No wheezing, use of accessory muscles, no crackles or wheezes. Skin - Skin warm and dry, no wounds or rashes Abdomen - Normal bowel sounds, abdomen soft and nontender Extremities - No edema, cyanosis or clubbing Musculoskeletal - 5/5 strength, normal range of motion, no swollen or erythematous joints. Neurological ? Alert and oriented x 3, CN II-XII grossly intact. Slight decreased sensation to bilateral hands and legs that starts slightly above the knees. Psych: Normal mood and affect. DS: Data Data Completed and Pending Labs on day of discharge: Labs from last 24 hours 04/27/24 04/27/24 04/27/24 11:37 07:58 06:46 WBC 7.0 RBC 4.53 Hgb 12.6 Hct 39.8 MCV 87.9 MCH 27.8 MCHC 31.7 L RDW 16.3 H Plt Count 194 MPV 9.4 Immature Gran % (Auto) 0.1 Neut % (Auto) 66.4 Lymph % (Auto) 23.5 [place] % (Auto) 7.5 Eos % (Auto) 2.1 Baso % (Auto) 0.4 Lymph # (Auto) 1.65 [place] # (Auto) 0.5 Eos # (Auto) 0.2 Baso # (Auto) 0.0 Abs Immat Gran (auto) 0.01 Absolute Neuts (auto) 4.7 Absolute Nucleated RBC 0.000 Nucleated RBC % 0.0 Sodium 139 Potassium 4.0 Chloride 101 Carbon Dioxide 33 H Anion Gap 5 BUN 23 H Creatinine 0.80 Estim Creat Clear Calc 49 Estimated GFR > 60 Glucose 110 POC Capillary Glucose 136 H 105 Calcium 8.8 Vitamin B12 487.0 Folate 11.2 04/26/24 04/26/24 19:50 16:48 WBC RBC Hgb Hct MCV MCH MCHC RDW Plt Count MPV Immature Gran % (Auto) Neut % (Auto) Lymph % (Auto) [place] % (Auto) Eos % (Auto) Baso % (Auto) Lymph # (Auto) [place] # (Auto) Eos # (Auto) Baso # (Auto) Abs Immat Gran (auto) Absolute Neuts (auto) Absolute Nucleated RBC Nucleated RBC % Sodium Potassium Chloride Carbon Dioxide Anion Gap BUN Creatinine Estim Creat Clear Calc Estimated GFR Glucose POC Capillary Glucose 184 H 172 H Calcium Vitamin B12 Folate Discharge Plan Discharge Attending physician on discharge: Joaquin Cochran Consulting providers: Bartolome Olea Discharging Clinician: Calixto Jules Anticipated Discharge Date/Time: 04/27/24 14:16 Patient Disposition: Home, Self-Care Activity: as tolerated Diet: heart healthy Patient Instructions: Antibiotic Form, Apixaban (By mouth) Stand Alone Forms: General Discharge Information Follow-up/Referrals: Bartolome Olea MD [Physician] - 1 Week Discharge Medications: Continued Eliquis 5 mg tablet 5 mg PO BID PreserVision AREDS-2 [phone]-[id number]-mg capsule 1 tablet PO ONCE vitamin B complex Tablet 1 tablet PO DAILY cetirizine 10 mg tablet 10 mg PO DAILY PRN (Reason: allergy) cholecalciferol (vitamin D3) 2,000 unit tablet 2,000 unit PO DAILY omega-3 fatty acids [Fish Oil Concentrate] 1,000 mg capsule 1,000 mg PO DAILY furosemide [Lasix] 20 mg tablet 20 mg PO PRN PRN (Reason: Edema) Rx Instructions: TAKE 1 TABLET BY MOUTH EVERY DAY IN THE MORNING rosuvastatin [Crestor] 5 mg tablet 5 mg PO BID Rx Instructions: TAKE 1 TABLET BY MOUTH EVERY EVENING Ozempic 0.25 mg or 0.5 mg (2 mg/3 mL) pen injector 0.5 mg SUBCUT WEEKLY (DME) Contour Next Test Strips Strip See Rx Instructions .ROUTE .COMPLEX Qty: 200 0RF Dose Instruction: USE TO TEST ONCE OR TWICE DAILY Rx Instructions: USE TO TEST ONCE OR TWICE DAILY (DME) lancets [Microlet Lancet] Misc See Rx Instructions .ROUTE .COMPLEX Qty: 200 3RF Dose Instruction: TEST ONCE OR TWICE DAILY Rx Instructions: TEST ONCE OR TWICE DAILY triamterene-hydrochlorothiazid 37.5-25 mg capsule See Rx Instructions .ROUTE .COMPLEX Qty: 180 1RF Dose Instruction: TAKE 1 CAPSULE BY MOUTH TWICE A DAY Rx Instructions: TAKE 1 CAPSULE BY MOUTH TWICE A DAY Date of admission: 04/26/24 00:25 Primary Care Provider: Lasha,Tad Garcia Admitting Provider: Ina Berg Attending physician on admission: Manuela Sorenson Condition: Stable Quality VTE Prophylaxis VTE prophylaxis: pharmacologic ordered Hospitalist MIPS Heart Failure (Exclusion) Patient has history of Heart Transplant or Left Ventricular Assistive Device?: No IF YES, STOP HERE Heart Failure (Qualifier) Patient has current or prior documentation of LVEF less than or equal to 40%, or mod/servere depressed LVSF?: No IF NO, STOP HERE If Yes, Heart Failure (Qualifier) Patient was prescribed or already taking an Angiotensin-Converting Enzyme (NUNO) Inhibitor, or Antiotensin Receptor [place] (ARB): Yes If Medications not prescribed/taking Reason patient not prescribed/taking bisoprolol, carvedilol, or sustained realease metoprolol succinate: Patient reasons: pt declined or other pt reason (Patient declined)
== END 2024-04-27 15:20 | disposition home or self-care (01) ==
LOC: ANHED 17:29 → ANH3MEDSUR 04-26 01:54
PROVIDERS: Registered Nurse; Admitting Provider Internal Medicine; Emergency Provider Physician Assistant; PCP Family Medicine; Visit Provider Nurse Practitioner Acute Care
DX: R42 Dizziness and giddiness (principal); H90.5 Unspecified sensorineural hearing loss; E11.42 Type 2 diabetes mellitus with diabetic polyneuropathy; E11.22 Type 2 diabetes mellitus with diabetic chronic kidney disease; I12.9 Hypertensive chronic kidney disease with stage 1 through stage 4 chronic kidney disease, or unspecified chronic kidney disease; N18.31 Chronic kidney disease, stage 3a; I70.0 Atherosclerosis of aorta; I25.10 Atherosclerotic heart disease of native coronary artery without angina pectoris; J44.89 Other specified chronic obstructive pulmonary disease; J45.20 Mild intermittent asthma, uncomplicated; I48.0 Paroxysmal atrial fibrillation; H35.3211 Exudative age-related macular degeneration, right eye, with active choroidal neovascularization; H81.09 Meniere's disease, unspecified ear; I67.2 Cerebral atherosclerosis; M48.10 Ankylosing hyperostosis [Forestier], site unspecified; K57.90 Diverticulosis of intestine, part unspecified, without perforation or abscess without bleeding; K58.8 Other irritable bowel syndrome; M48.062 Spinal stenosis, lumbar region with neurogenic claudication; M54.16 Radiculopathy, lumbar region; E66.9 Obesity, unspecified; Z68.32 Body mass index [BMI] 32.0-32.9, adult; M35.3 Polymyalgia rheumatica; Z20.822 Contact with and (suspected) exposure to COVID-19; Z79.01 Long term (current) use of anticoagulants; Z79.899 Other long term (current) drug therapy; Z90.710 Acquired absence of both cervix and uterus
CPT/HCPCS: 36415; 70450; 70496; 70498; 70553; 71046; 80048; 80053; 81001; 82607; 82746; 82948; 83735; 83880; 84484; 85025; 85610; 85730; 87086; 87637; 93005; 93306; 96360; 97161; 97165; 99285; A9270; A9577; G0378; J7030; Q9967

== ENCOUNTER 2024-10-08 14:13 | Outpatient (CLI) | payer MEDICARE, SELFPAY ==
--- NOTE | ~2024-10-08 | XR_ITS ---
Left Knee Technique: AP, lateral, and sunrise views were obtained. Clinical History: Pain Findings: No fracture or dislocation is seen. Osseous alignment is anatomic. There is moderate to adv anced tricompartmental degenerative joint disease. Soft tissues are unremarkable. No joint effusion i s seen. 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 Reviewed, dictated and finalized at location . 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
--- NOTE | ~2024-10-08 | US_ITS ---
EXAMINATION: US venous doppler [facility] DATE: 10/08/2024 15:06 INDICATION: Left lower extremity pain TECHNIQUE: Grayscale ultrasound images without and with compression and Doppler ultrasound images of the left lower extremity veins were obtained. COMPARISON: None. FINDINGS: The visualized portions of left common femoral vein, profunda (deep) femoral vein, femoral vein, popl iteal vein, peroneal veins, posterior tibial veins, and greater saphenous vein outflow are patent. IMPRESSION: 1. No deep venous thrombosis. Reviewed, dictated and finalized at location A.
--- OUTSIDE RECORDS SUMMARY | 2024-10-08 15:58 | XMS_ITS | Referral Summary ---
Author Organization [facility] Address [address] [place] [address] Care Team Providers Care Economics Analyst Name Role Phone Tad Colby DO Primary Care Provider + Allergies Active Allergy Reactions Criticality Noted Date Comments Bifidobacterium Infantis Rash Medium 10/11/2021 gummies Ceftriaxone Rash,Shortness of breath High 07/19/2018 Ceftriaxone In Dextrose,Iso-Os Rash,Shortness of breath High 09/13/2017 Ceftriaxone Sodium (Bulk) Rash,Shortness of breath High 09/13/2017 Gentamicin Urticaria,Hives High 01/14/2020 Levofloxacin Rash,Syncope High 09/13/2017 Losartan Shortness of breath,Other (See comments) High 07/19/2018 Fainting and lowers BP Nitrofurantoin Rash Medium 09/13/2017 Ondansetron Shortness of breath,Other (See comments) High 02/09/2018 Headaches Penicillins Rash Medium 09/13/2017 myalgia Pentazocine Nausea And Vomiting,Other (See comments) Low 09/13/2017 Hallucinations Propoxyphene Rash Medium 09/13/2017 Propoxyphene Hcl Rash Medium 09/13/2017 Propoxyphene-Acetaminophen Rash Medium 8 Ropinirole Sulfamethoxazole Sulfamethoxazole-Trimethop rim Rash Medium 09/13/2017 Talwin Compound Rash Medium 07/19/2018 Trimethoprim Unclassified Drug Rash Medium 07/19/2018 darvocet Medications Lactobacillus acidophilus (PROBIOTIC) 10 billion cell capsule 0 0 7 Active cholecalciferol (VITAMIN D3) 1,000 unit capsule take two by oral route every day 0 5 Active multivit with minerals/lutein (MULTIVITAMIN 50 PLUS ORAL) Take 1 tablet by mouth daily Active clobetasoL (TEMOVATE) 0.05 % ointment 0 Active albuterol HFA (PROVENTIL HFA,VENTOLIN HFA,PROAIR HFA) 90 mcg/actuation inhalerIndicatio ns:Bronchospasm Prevention Inhale 2 puffs every 6 (six) hours as needed for wheezing or shortness of breath 1 each 2 Active fluticasone propionate (FLONASE) 50 mcg/actuation nasal spray Administer 1 spray into affected nostril(s) 2 (two) times a day 2 Active Eliquis 5 mg tablet Take 1 tablet (5 mg total) by mouth 2 (two) times a day 90 tablet 1 3 Active montelukast (SINGULAIR) 10 mg tablet Take 1 tablet (10 mg total) by mouth nightly 90 tablet 1 3 Active Additional Information Patient not taking.Reported on 12/08/2023 rosuvastatin (CRESTOR) 5 mg tablet Take 1 tablet (5 mg total) by mouth nightly 90 tablet 1 3 Active semaglutide (Ozempic) 0.25 mg or 0.5 mg (2 mg/3 mL) pen injector injection INJECT 0.5MG UNDER THE SKIN EVERY 7 DAYS Strength: 0.25 mg or 0.5 mg (2 mg/3 mL) 9 mL 1 3 Active hydrOXYzine (ATARAX) 25 mg tablet Active Contour Next Test Strips strip Use to test daily 100 each 3 3 Active lancets (Microlet Lancet) misc Use to check glucose daily 100 each 3 3 Active triamterene-hydr oCHLOROthiazide 37.5-25 mg per capsule Take 1 tablet/capsule by mouth 2 (two) times a day 3 Active predniSONE (DELTASONE) 10 mg tablet 2 tabs daily for 7 days then 1 tab daily for 7 days then 1/2 tab daily for 14 days 28 tablet 3 Active vit C,K-Ag-wzyxu-lut ein-adela 250-90-40-1 mg capsule Take 1 capsule by mouth daily Active Active Problems Problem Noted Date Diagnosed Date Bilateral lower extremity pain 12/09/2023 PVD (peripheral vascular disease) 12/09/2023 Assessment & Plan (01/12/2024 11:31 AM CDT): Impression: Patient complains of muscle cramping to bilateral calves that occurs with prolong sitting, lying, and stretching of her legs. She denies any symptoms suggestive of claudication, ischemic rest pain or ulcerations to her lower extremity. Lower extremity arterial Doppler reveals triphasic waveforms with normal ABIs. Plan: Discussed with the patient symptoms are neurogenic in nature. Patient does have a history of spinal stenosis and has received injections in the past. -recommend patient to follow up with primary care provider for further evaluation. -patient to follow up on an as-needed basis. Assessment & Plan (12/09/2023 10:15 AM CDT): Bilateral cramping to level of the calves if she has been walking too much or while she is driving also cramping at night. Denies any symptoms arterial claudication. Symptoms are likely neurogenic in nature we will confirm this with follow-up of a lower extremity arterial Doppler. 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 Plan: Continue Ozempic Assessment & Plan (01/26/2023 12:25 PM CDT): Patient is well controlled. Continue current treatment. Check a A1c Assessment & Plan (01/20/2023 8:11 AM CDT): She feels like a new person off of the metformin and on the Ozempic. She is doing much better. Assessment & Plan (10/26/2022 7:54 PM CDT): Last A1C well controlled at 6.7 however having a lot of diarrhea and bloating with metformin. Will d/c and switch to Ozempic as she's working hard on weight loss. Side effects of Ozempic discussed. Start low dose gabapentin 100 mg nightly for neuropathy. If doesn't tolerate gabapentin consider low dose of amitriptyline. Also recommend trying lipoic acid OTC. Pain in both hands 09/02/2022 Assessment & Plan (09/02/2022 3:53 PM METER SHOP SUPERINTENDENT): X ray b hands Myalgia 09/02/2022 Assessment & Plan (09/02/2022 3:54 PM METER SHOP SUPERINTENDENT): Lab to include michael rf Sed rate Uric acid Mg ++ cpk Cbc chem7 lft PMR (polymyalgia rheumatica) 07/08/2022 Assessment & Plan (01/26/2023 12:17 PM CDT): Patient is well controlled. Continue current treatment. Assessment & Plan (07/08/2022 2:59 PM METER SHOP SUPERINTENDENT): Sees aircraft engine mechanic supervisor Spinal stenosis of lumbar re gion without neurogenic claudication 07/08/2022 Assessment & Plan (07/08/2022 2:59 PM METER SHOP SUPERINTENDENT): Long standing Chronic pain syndrome 07/08/2022 Assessment & Plan (07/08/2022 3:00 PM METER SHOP SUPERINTENDENT): Long standing Back Chronic fatigue 07/08/2022 Assessment & Plan (07/08/2022 3:03 PM METER SHOP SUPERINTENDENT): tsh and free t4 Paresthesia 07/08/2022 Assessment & Plan (09/02/2022 3:53 PM METER SHOP SUPERINTENDENT): ncs bue Assessment & Plan (07/08/2022 3:08 PM METER SHOP SUPERINTENDENT): tsh Free t4 rpr b 12 Seronegative rheumatoid arthritis 04/15/2020 10/26/2022 Assessment & Plan (01/26/2023 12:17 PM CDT): Patient is well controlled. Continue current treatment. Sees aircraft engine mechanic supervisor Assessment & Plan (01/20/2023 8:10 AM CDT): stable Primary osteoarthritis of left knee 03/06/2020 Right rotator cuff tear arthropathy 02/02/2019 MGUS (monoclonal gammopathy of unknown significa nce) 07/19/2018 Assessment & Plan (07/08/2022 3:00 PM METER SHOP SUPERINTENDENT): Sees oncology Amblyopia of eye, left 02/09/2018 3 Bilateral nonexudative age-related macular degen eration 02/09/2018 10/26/2022 Other giant cell arteritis 09/13/201710/26 Assessment & Plan (01/26/2023 12:17 PM CDT): Sees aircraft engine mechanic supervisor Other headache syndrome 09/13/2017 10/27/19 23 Visual disturbance 09/13/2017 10/26/2022 Trigger finger, left ring finger 08/23/2017 Stiffness of right hand joint 08/23/2017 Stiffness of left hand joint 08/23/2017 Hernia of anterior abdominal wall 07/06/2016 Overview (09/30/2016): Ventral hernia Hypertension 11/10/2013 Overview (09/29/2016): HYPERTENSION NOS Assessment & Plan (01/26/2023 12:16 PM CDT): Patient is well controlled. Continue current treatment. Obesity, diabetes, and hypertension syndrome Overview (09/29/2016): DYSMETABOLIC SYNDROME X Assessment & Plan (01/26/2023 12:16 PM CDT): Patient is well controlled. Continue current treatment. Assessment & Plan (07/08/2022 3:09 PM METER SHOP SUPERINTENDENT): Check a a1c and a uacr Pure hypercholesterolemia 11/10/2013 Overview (09/29/2016): PURE HYPERCHOLESTEROLEM Assessment & Plan (01/12/2024 11:29 AM CDT): Impression: Chronic and stable. Plan: Continue rosuvastatin. Vitamin D deficiency 11/10/2013 Overview (09/29/2016): VITAMIN D DEFICIENCY NOS Resolved Problems Problem Noted Date Diagnosed Date Resolved Date Cellulitis of right lower extremity 01/20/2023 01/26/2023 Assessment & Plan (01/20/2023 8:10 AM CDT): Wound examined Re bandaged with wrapping Bactroban placed Call if worsening Follow up 1 week Allergic drug reaction 03/06/202001/26 PMR (polymyalgia rheumatica) 12/11/2018 01/26/2023 Assessment & Plan (07/08/2022 3:01 PM METER SHOP SUPERINTENDENT): No new orders Immunizations Immunization Administration Dates Next Due Influenza, Quadrivalent, Spl it, Preservative Free, Intradermal 06/13/2015 Influenza, Trivalent, High D ose, Split, Preservative Free, Intramuscular 05/31/2014 Influenza, Unspecified 04/11/2023(Deferr ed: Patient ill today),04/15/2022(Deferred: Patient Refused),03/27/2022(Deferred: Patient Refused),03/27/2021(Deferred: Patient Refused) Pneumococcal Conjugate PCV 13 06/13/2015 Pneumococcal Polysaccharide PPV23 01/02/2016,06/2007 Social History Tobacco Use Types Packs/Day Years Used Date Smoking Tobacco: Never Smokeless Tobacco: Never Tobacco Cessation:Counseling Given: Not Answered Alcohol Use Standard Drinks/Week Comments Yes 0 (1 standard drink = 0.6 oz pur e alcohol) AUDIT-C Answer Date Recorded Q1: How often do you have a drink containing alc ohol? Never 01/26/2023 Average Number of Drinks Not on file 023 Frequency of Binge Drinking Not on file 07/2022 PHQ-2 Answer Date Recorded PHQ-2 Total Score (If total score is 3 or more points, staff should administer the PHQ-9) 0 01/20/2023 Comments No Sex and Gender Information Value Date Recorded Sex Assigned at Not on file Legal Sex Female 1:20 PM METER SHOP SUPERINTENDENT Gender Identity Not on file Sexual Orientation Not on file Last Filed Vital Signs Vital Sign Reading Time Taken Comments Blood Pressure 130/84 04/24/2024 2:08 PM CDT Pulse 68 04/24/2024 2:08 PM CDT Temperature 36.7 C (98.1 F) 04/24/2024 2:08 PM CDT Respiratory Rate 16 04/24/2024 2:08 PM CDT Oxygen Saturation 97% 04/24/2024 2:08 PM CDT Inhaled Oxygen Concentration - - Weight 78.9 kg (174 lb) 04/24/2024 2:08 PM CDT Height 160 cm (5' 3 ) 04/24/2024 2:08 PM CDT Body Mass Index 30.82 04/24/2024 2:08 PM CDT Plan of Treatment Not on file Procedures Procedure Name Priority Date/Time Associated Diagnosis Comments DEXA AXIAL SKELETON BONE DENSITY 1 OR MORE SITES Schedule Routine, Read Routine (OP Routine) 04/14/2023 7:42 AM CDT Post-menopausal BASIC METABOLIC PANEL Routine 03/04/2023 12:31 PM CDT Abnormal laboratory test Elevated creatine kinase level ALBUMIN CREATININE RATIO, URINE Routine 02/14/2023 10:11 AM CDT HEMOGLOBIN A1C Routine 01/27/2023 2:00 PM CDT DIABETIC EYE EXAM Routine 01/07/2023 LIPID PANEL Routine 07/09/2022 1:15 PM METER SHOP SUPERINTENDENT Chronic fatigue Paresthesia from Last 3 Months or Most Recently Relevant to Health Maintenance Results * Dexa Axial Skeleton Bone Density 1 or 2 Site (04/14/2023 7:42 AM CDT) Anatomical Region Laterality Modality Body N/A Mammography 04/14/2023 9:23 AM CDT Narrative 04/14/2023 9:24 AM CDT EXAM DESCRIPTION: DEXA AXIAL SKELETON BONE DENSITY 1 OR MORE SITES REASON FOR STUDY: 82 y/o year old F with given history of: Post menopausal status. History of glucocorticoid use. Porcelain Finish Sprayer/Model: Sunsea A (S/N [id number]) CLINICAL INFORMATION: Current height: 63 inches Maximum height: 63 inches Weight: 178.4 pounds Risk factors: Glucocorticoid COMPARISON: None available FINDINGS: AP LUMBAR SPINE L1-L4: Total BMD is 1.425 g/cm2 T-score is 3.4 LEFT HIP: Total BMD is 1.033 g/cm2 T-score is 0.7 Femoral neck BMD is 1.085 g/cm2 T-score is 2.1 FRAX: FRAX not reported due to T-scores of hip, femoral neck and/or spine being at or above -1.0 (Normal). IMPRESSION: Normal bone mass REFERENCE: Bone mineral density: Normal (T-score above or = -1.0) Low bone mass (T-score between -1.0 and -2.5) replaces the previously used term osteopenia Osteoporosis (T-score = or below -2.5) Medical evaluation for secondary causes of low bone mineral density may be appropriate. FRAX is a World Health Organization validated fracture risk assessment tool that calculates a person's 10 year probability of a major osteoporosis related fracture and hip fracture. According to the National Osteoporosis Foundation guidelines, postmenopausal women and men age 50 or older with low bone mass and a 10 year probability of a major osteoporosis related fracture = or greater than 20% or a 10 year probability of a hip fracture = or greater than 3% should be considered for treatment. For further information, including treatment recommendations, please refer to the 2019 ISCD Official Positions (http://www.iscd.org) and the NOF's Clinician's Guide to Prevention and Treatment of Osteoporosis (http://www.nof.org/professionals/clinical-guidelines) THIS IS AN ELECTRONICALLY VERIFIED FINAL REPORT 04/14/2023 9:24 AM - Electronically signed by Sommer Gonsalez M.D. TW: TW Report ID: [id number] Reading Location: [place] [address] Procedure Note Sommer Gonsalez MD - 04/14/2023 EXAM DESCRIPTION: DEXA AXIAL SKELETON BONE DENSITY 1 OR MORE SITES REASON FOR STUDY: 82 y/o year old F with given history of: Post menopausal status. History of glucocorticoid use. Porcelain Finish Sprayer/Model: Holo3sun A (S/N [id number]) CLINICAL INFORMATION: Current height: 63 inches Maximum height: 63 inches Weight: 178.4 pounds Risk factors: Glucocorticoid COMPARISON: None available FINDINGS: AP LUMBAR SPINE L1-L4: Total BMD is 1.425 g/cm2 T-score is 3.4 LEFT HIP: Total BMD is 1.033 g/cm2 T-score is 0.7 Femoral neck BMD is 1.085 g/cm2 T-score is 2.1 FRAX: FRAX not reported due to T-scores of hip, femoral neck and/or spine beingat or above -1.0 (Normal). IMPRESSION: Normal bone mass REFERENCE: Bone mineral density: Normal (T-score above or = -1.0) Low bone mass (T-score between -1.0 and -2.5) replaces thepreviously used term osteopenia Osteoporosis (T-score = or below -2.5) Medical evaluation for secondary causes of low bone mineral density may be appropriate. FRAX is a World Health Organization validated fracture risk assessmenttool that calculates a person's 10 year probability of a major osteoporosisrelated fracture and hip fracture. According to the National OsteoporosisFoundation guidelines, postmenopausal women and men age 50 or older with low bonemass and a 10 year probability of a major osteoporosis related fracture = or greater than 20% or a 10 year probability of a hip fracture = or greaterthan 3% should be considered for treatment. For further information, including treatment recommendations, please referto the 2019 ISCD Official Positions (http://www.iscd.org) and the NOF's Clinician's Guide to Prevention and Treatment of Osteoporosis (http://www.nof.org/professionals/clinical-guidelines) THIS IS AN ELECTRONICALLY VERIFIED FINAL REPORT 04/14/2023 9:24 AM - Electronically signed by Sommer Gonsalez M.D. TW: TW Report ID: [id number] Reading Location: [place] [address] Tad Colby DO IMG DXA PROCEDURES Final Result * (ABNORMAL) Basic metabolic panel (03/04/2023 12:31 PM CDT) [facility] Glucose 145(H) 65 - 99 mg/dL [facility] Comment: Fasting reference interval For someone without known diabetes, a glucose value >125 mg/dL indicates that they may have diabetes and this should be confirmed with a follow-up test. BUN 32(H) 7 - 25 mg/dL [facility] Creatinine 1.13(H) 0.60 - 0.95 mg/dL [facility] eGFR 49(L) > OR = 60 mL/min/1.7 3m2 [facility] BUN/creat ratio 28(H) 6 - 22 (calc) [facility] Sodium 138 135 - 146 mmol/L [facility] Potassium, pl 4.0 3.5 - 5.3 mmol/L [facility] Chloride 100 98 - 110 mmol/L [facility] CO2 28 20 - 32 mmol/L [facility] Calcium 9.2 8.6 - 10.4 mg/dL [facility] Blood 03/04/2023 12:3 1 PM CDT 03/04/2023 12:32 PM CDT Tad Colby DO LAB BLOOD ORDERABLES Fin al Result Performing Organization Address [facility] Co de Phone Number [facility] [address] [phone] * Albumin Creatinine Ratio, Urine (02/14/2023 10:11 AM CDT) Creatinine, ur 79 20 - 275 mg/dL [facility] Microalbumin, ur <0.2 See Note: mg/dL [facility] Comment: Reference Range: Reference Range Not established Microalbumin/creat ratio NOTE <30 mcg/mg creat [facility] Comment: NOTE: The urine albumin value is less than 0.2 mg/dL therefore we are unable to calculate excretion and/or creatinine ratio. The ADA defines abnormalities in albumin excretion as follows: Albuminuria Category Result (mcg/mg creatinine) Normal to Mildly increased <30 Moderately increased 30-299 Severely increased > OR = 300 The ADA recommends that at least two of three specimens collected within a 3-6 month period be abnormal before considering a patient to be within a diagnostic category. 02/14/2023 10:1 1 AM CDT 02/14/2023 10:11 AM CDT Narrative [facility] - 02/15/2023 6:56 AM CDT SPLIT 02/11/2023 FROM [id number] Tad Colby DO LAB URINE ORDERABLES Fin al Result Performing Organization Address [facility] Co de Phone Number [facility] [address] [phone] * (ABNORMAL) Hemoglobin A1c (01/27/2023 2:00 PM CDT) Hgb A1C 5.9(H) <5.7 % of total Hgb [facility] Comment: For someone without known diabetes, a hemoglobin A1c value between 5.7% and 6.4% is consistent with prediabetes and should be confirmed with a follow-up test. For someone with known diabetes, a value <7% indicates that their diabetes is well controlled. A1c targets should be individualized based on duration of diabetes, age, comorbid conditions, and other considerations. This assay result is consistent with an increased risk of diabetes. Currently, no consensus exists regarding use of hemoglobin A1c for diagnosis of diabetes for children. 01/27/2023 2:00 PM CDT 01/27/2023 2:01 PM CDT Tad Colby DO LAB BLOOD ORDERABLES Fin al Result [facility] [address] [place] [address] * Diabetic Eye Exam (01/07/2023) Historical Provider HEALTH MAINTENANCE Final Result * (ABNORMAL) Lipid panel (07/09/2022 1:15 PM METER SHOP SUPERINTENDENT) [facility] Cholesterol 142 <200 mg/dL [facility] HDL 36(L) > OR = 50 mg/dL [facility] Triglycerides 318(H) <150 mg/dL [facility] Comment: If a non-fasting specimen was collected, consider repeat triglyceride testing on a fasting specimen if clinically indicated. Chris et al. J. of Clin. Lipidol. 2015;9:129-169. LDL 68 mg/dL (calc) [facility] Comment: Reference range: <100 Desirable range <100 mg/dL for primary prevention; <70 mg/dL for patients with CHD or diabetic patients with > or = 2 CHD risk factors. LDL-C is now calculated using the Barbra calculation, which is a validated novel method providing better accuracy than the Friedewald equation in the estimation of LDL-C. Trey WATKINS et al. SERGIO. 2013;310(19): 2761-6986 (http://education.[employer]Paytopia/faq/AEQ562) Chol/HDL ratio 3.9 <5.0 (calc) [facility] Non-HDL, (LDL+VLDL) 106 <130 mg/dL (calc) [facility] Comment: For patients with diabetes plus 1 major ASCVD risk factor, treating to a non-HDL-C goal of <100 mg/dL (LDL-C of <70 mg/dL) is considered a therapeutic option. Blood 07/09/2022 1:15 PM METER SHOP SUPERINTENDENT 07/09/2022 1:16 PM METER SHOP SUPERINTENDENT Narrative [facility] - 07/12/2022 9:59 AM METER SHOP SUPERINTENDENT FASTING:YES FASTING: YES Tad Colby DO LAB BLOOD ORDERABLES Fin al Result [facility] [address] [phone] from Last 3 Months or Most Recently Relevant to Health Maintenance Insurance [facility] MEDICARE GOLD [employer] MEDICARE GOLD Care Teams Economics Analyst Relationship Specialty Start Date End Date Tad Colby DO PCP - General Family Medicine 07/08/22
--- OUTSIDE RECORDS SUMMARY | 2024-10-08 15:58 | XMS_ITS | Clinical Summary ---
Author Organization [facility] Address [address] [place] [address] Care Team Providers Care Broke Worker Name Role Phone Tad Colby DO Primary [...] 14 days 28 tablet 3 Active vit C,T-Ve-ziuoz-lut ein-adela 250-90-40-1 mg capsule Take 1 capsule [...] years ago Coronary artery disease invo lving [place] coronary artery of [place] heart without angina pectoris 01/26/2023 Assessment & Plan (01/26/2023 12:22 PM CDT): History of a cardiac cath Pruritus 01/26/2023 Assessment & Plan (01/26/2023 12:31 PM CDT): Chronic Worsening Add singulair See autism motor specialist if continues Trochanteric bursitis of both hips [...] 09/02/2022 Assessment & Plan (09/02/2022 3:53 PM DATA SYSTEMS MANAGER): X ray b hands Myalgia 09/02/2022 Assessment & Plan (09/02/2022 3:54 PM DATA SYSTEMS MANAGER): Lab to include michael rf Sed rate Uric acid Mg ++ cpk Cbc chem7 lft PMR (polymyalgia rheumatica) 07/08/2022 Assessment & Plan (01/26/2023 12:17 PM CDT): Patient is well controlled. Continue current treatment. 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 07/08/2022 Assessment & Plan (07/08/2022 2:59 PM DATA SYSTEMS MANAGER): Long standing Chronic pain syndrome 07/08/2022 Assessment & Plan (07/08/2022 3:00 PM DATA SYSTEMS MANAGER): Long standing Back Chronic fatigue 07/08/2022 Assessment & Plan (07/08/2022 3:03 PM DATA SYSTEMS MANAGER): tsh and free t4 Paresthesia 07/08/2022 Assessment & Plan (09/02/2022 3:53 PM DATA SYSTEMS MANAGER): ncs bue Assessment & Plan (07/08/2022 3:08 PM DATA SYSTEMS MANAGER): tsh Free t4 rpr b 12 Seronegative rheumatoid arthritis 04/15/2020 10/26/2022 Assessment & Plan (01/26/2023 12:17 PM CDT): Patient is well controlled. Continue current treatment. Sees powder shoveler Assessment & Plan (01/20/2023 8:10 AM CDT): stable Primary osteoarthritis of left knee 03/06/2020 Right rotator cuff tear arthropathy 02/02/2019 MGUS (monoclonal gammopathy of unknown significa nce) 07/19/2018 Assessment & Plan (07/08/2022 3:00 PM DATA SYSTEMS MANAGER): Sees oncology Amblyopia of eye, left 02/09/2018 3 Bilateral nonexudative age-related macular degen eration 02/09/2018 10/26/2022 Other giant cell arteritis 09/13/201710/26 Assessment & Plan (01/26/2023 12:17 PM CDT): Sees powder shoveler Other headache syndrome 09/13/2017 10/27/19 23 Visual [...] treatment. Assessment & Plan (07/08/2022 3:09 PM DATA SYSTEMS MANAGER): Check a a1c and a uacr Pure [...] 01/26/2023 Assessment & Plan (07/08/2022 3:01 PM DATA SYSTEMS MANAGER): No new orders Immunizations Immunization Administration Dates Next Due Influenza, Quadrivalent, Spl it, Preservative Free, Intradermal 06/13/2015 Influenza, Trivalent, High D ose, Split, Preservative Free, Intramuscular 05/31/2014 Influenza, Unspecified 04/11/2023(Deferr ed: Patient ill today),04/15/2022(Deferred: Patient Refused),03/27/2022(Deferred: Patient Refused),03/27/2021(Deferred: Patient Refused) Pneumococcal Conjugate PCV 13 06/13/2015 Pneumococcal Polysaccharide PPV23 01/02/2016,06/2007 Surgical History Surgery Date Site/Laterality Comments CHOLECYSTECTOMY Cholecystectomy LASIK LASIK CATARACT EXTRACTION Cataract extraction TOTAL ABDOMINAL HYSTERECTOMY Hysterectomy, total CARPAL TUNNEL RELEASE Bilateral Carpal tunnel release KNEE ARTHROSCOPY Bilateral Arthroscopy knee OTHER SURGICAL HISTORY Left corrective eye surgery APPENDECTOMY 06/27/1970 - 06/26/1971 Medical History Medical History Date Comments Hx Other Medical hx of pancreati tis Hypertension Hypertension Hx Other Medical 2000 IVC filter Sleep apnea Sleep Apnea Adiposity Obesity Hx Other Medical DVT Hx Other Medical Pulmonary Embol us Asthma Asthma; Comments : 08/28/2015 - Hypercholesterolemia High choles terol; Comments: 08/28/2015 - Hx Other Medical poor circulatio n; Comments: 08/28/2015 - Hx Other Medical kidney stones; Comments: 08/28/2015 - Hx Other Medical osteoarthritis; Comments: 08/28/2015 - Hx Other Medical gerd; Comments: 08/28/2015 - Hx Other Medical abnormal heartb eat; Comments: 08/28/2015 - Hx Other Medical neuropathy; Com ments: 08/28/2015 - Hx Other Medical back pain; Comm ents: 08/28/2015 - Hx Other Medical blood clots in lung; Comments: 08/28/2015 - Hx Other Medical blood clots in leg; Comments: 08/28/2015 - Hx Other Medical diabetes; Comme nts: 08/28/2015 - Hx Other Medical heart attack; C omments: 08/28/2015 - Hx Other Medical Thromboembolic Event Chronic obstructive pulmonary disease (HCC) COPD Hx Other Medical 2010 Diverticulitis; Comments: GDS 07/06/2016 - Allergic rhinitis GERD (gastroesophageal reflux disease) Diabetes mellitus (HCC) DVT (deep venous thrombosis) (HCC) Spinal stenosis Pulmonary emboli (HCC) 2000 Kidney stones 2013 Family History Medical History Relation Name Comments Coronary artery disease Brother 1 1 Tyrone nary Artery Bypass Graft; Coronary artery disease Brother 2 2 [place] nary Artery Bypass Graft; Coronary artery disease Brother 3 3 [place] nary Artery Bypass Graft; Hypertension Father Hypertension; Stroke Father Stroke; Cause o f : Stroke Stroke Maternal Grandmother Stroke; Cause of : Stroke Abdominal Aortic Aneurysm Mother Ab dominal aortic aneurysm; Breast cancer Mother Cancer, breast ; Hypertension Mother Hypertension; Other Other 1 No family histo ry of Diabetes mellitus; Coronary artery disease Other 2 Fami ly history of Coronary artery disease; Arthritis Other 3 Family history of arthritis; Blood Clot Other 4 Family history of blood clots; Coronary artery disease Sister 2 Tyrone nary Artery Bypass Graft; Relation Name Status Comments Brother 1 1 Alive Brother 2 2 Alive Brother 3 3 Alive Father Maternal Grandmother Mother Other 1 Other 2 Other 3 Other 4 Sister 1 Alive Sister 2 Social History Tobacco Use Types Packs/Day Years [...] on file Legal Sex Female 1:20 PM DATA SYSTEMS MANAGER Gender Identity Not on file Sexual Orientation Not on file Obstetrics History Last Filed Vital Signs Vital Sign Reading [...] 04/24/2024 2:08 PM CDT Plan of Treatment Health Maintenance Due Date Last Done Comments Foot Exam 1942 DTaP/Tdap/Td Vaccine (1 - Tdap) 1953 Hepatitis B Screening 1960 Zoster Vaccine (1 of 2) 1992 Lipid Panel 07/09/2023 07/09/2022, 08/2016, 11/12/2015 Hemoglobin A1C 07/30/2023 01/27/2023, 07/09/2022 Dilated Eye Exam 01/08/2024 01/07/2023 Depression Screening 01/21/2024 01/20/2023, 07/08/19 23 Fall Risk Assessment 01/21/2024 01/20/2023, 07/08/19 23 Well Visit 65+ 01/27/2024 01/26/2023 Albumin Creatinine Ratio, Urine 02/15/2024 , 07/09/2022 Covid-19 Vaccine (2023-2 5 season) 2024 02/27/2021, 02/06/2021 eGFR 03/04/2024 03/04/2023, 01/25, 01/27/2023, Additional history exists Influenza Vaccine (Season Ended) 2025 06/13/20 15, 05/31/2014 Osteoporosis Screening-Bone Density Scan 04/14/2025 04/14/2023 Pneumococcal vaccine 65+ Completed 016, 06/13/2015, 06/27/2007 Procedures Procedure Name Priority Date/Time Associated Diagnosis [...] 01/07/2023 LIPID PANEL Routine 07/09/2022 1:15 PM DATA SYSTEMS MANAGER Chronic fatigue Paresthesia from Last 3 Months [...] Post menopausal status. History of glucocorticoid use. Branch Coordinator/Model: Solmentum A (S/N [id number]) CLINICAL INFORMATION: Current height: 63 inches Maximum [...] Sommer Gonsalez M.D. TW: TW Report ID: [id number] Reading Location: [place] [address] Procedure Note Sommer Gonsalez MD - 04/14/2023 EXAM DESCRIPTION: DEXA AXIAL SKELETON BONE DENSITY 1 OR MORE SITES REASON FOR STUDY: 82 y/o year old F with given history of: Post menopausal status. History of glucocorticoid use. Branch Coordinator/Model: Solmentum A (S/N [id number]) CLINICAL INFORMATION: Current height: 63 inches Maximum [...] Sommer Gonsalez M.D. TW: TW Report ID: [id number] Reading Location: [place] [address] [place] Tad Colby DO IMG DXA PROCEDURES Final Result * (ABNORMAL) Basic metabolic panel (03/04/2023 12:31 PM CDT) Glucose 145(H) 65 - 99 mg/dL [facility] [...] BLOOD ORDERABLES Fin al Result [facility] [address] [place] [address] * Albumin Creatinine Ratio, Urine (02/14/2023 10:11 AM CDT) Pathologist [facility] Creatinine, ur 79 20 - 275 mg/dL [...] 02/15/2023 6:56 AM CDT SPLIT 02/11/2023 FROM [id number] Tad Colby DO LAB URINE ORDERABLES Fin al Result [facility] [address] [place] [address] * (ABNORMAL) Hemoglobin A1c (01/27/2023 2:00 PM CDT) [facility] Hgb A1C 5.9(H) <5.7 % of total [...] BLOOD ORDERABLES Fin al Result [facility] [address] [place] [address] * Diabetic Eye Exam (01/07/2023) Historical Provider HEALTH MAINTENANCE Final Result * (ABNORMAL) Lipid panel (07/09/2022 1:15 PM DATA SYSTEMS MANAGER) Cholesterol 142 <200 mg/dL [facility] [...] factors. LDL-C is now calculated using the Trey-Terri calculation, which is a validated novel method providing better accuracy than the Friedewald equation in the estimation of LDL-C. Trey SS et al. SERGIO. 2013;310(19): 1498-8873 (http://education.zeenworld/faq/PPT510) Chol/HDL ratio 3.9 <5.0 (calc) [facility] Non-HDL, (LDL+VLDL) 106 <130 mg/dL (calc) [facility] Comment: For patients with diabetes plus 1 major ASCVD risk factor, treating to a non-HDL-C goal of <100 mg/dL (LDL-C of <70 mg/dL) is considered a therapeutic option. Blood 07/09/2022 1:15 PM DATA SYSTEMS MANAGER 07/09/2022 1:16 PM DATA SYSTEMS MANAGER Narrative [facility] - 07/12/2022 9:59 AM DATA SYSTEMS MANAGER FASTING:YES FASTING: YES Tad Colby DO LAB BLOOD ORDERABLES Fin al Result [facility] [address] [place] [address] from Last 3 Months or Most Recently Relevant to Health Maintenance Insurance FOR[facility]LY [facility] MEDICARE [employer] [facility] [facility] FORMERLY [facility] MEDICARE [employer] [facility] [facility] Care Teams Broke Worker Relationship Specialty Start Date End Date Tad Colby DO PCP - General Family Medicine 07/08/22
--- OUTSIDE RECORDS SUMMARY | 2024-10-08 15:58 | XMS_ITS | Data Portability ---
Author Organization [facility] Address [address] [place] [address] Care Team Providers Care Stationary Plant Operators Name Role Phone JAYLYN BERNAL Primary Care Provider [phone] Assessment No assessment recorded. Plan of Treatment Reminders Order Date Submit Date Provider Last Modified By Organization Details Last Modified Time Details Appointments ACUTE 15 2024 11:15A Anny Bernal, DO Not available Not available Not available ANY 15 2024 10:30A Anny Bernal, DO Not available Not available Not available Lab CBC w/ auto diff 2023 [facility], [address], [address], [place], [address], 04/17/2024 05:32:45 BMP, serum or plasma 2023 [facility], [address], [place], [address], 04/17/2024 05:32:43 HbA1c (hemoglob in A1c), blood 2023 [facility], [address], [place], [address], 04/17/2024 05:32:46 hepatic function panel, serum 2023 [facility], [address], [place], [address], 04/17/2024 05:32:44 lipid panel, serum 2023 024 JOEY [employer] [facility], [address], [place], [address], 04/17/2024 05:32:43 Referral physical therapist referral 2024 025 [facility], [address] [place], [address], 08/17/2024 08:50:40 Procedures None recorded. Surgeries None recorded. Imaging None recorded. Medication Orders amlodipin e 2.5 mg tablet 2023 024 [facility], [address] [place], [address], 05/04/2024 13:05:55 Ozempic 1 mg/dose (2 mg/1.5 mL) subcutane ous pen injector 2023 025 [facility], [address] [place], [address], 08/10/2024 12:05:26 Patient TargetsNo targets recorded. Patient Instructions Encounter Date Encounter Id Patient Instructions Last Modified By Organization Details Last Modified Time 08/10/2024 [id number] A healthy lifestyle: care instructions [email or web address] Not available 08/10/2024 14:16:31 Reason for Referral Physical Therapist Referral for Spinal stenosis of lumbar region Referring Physician: Jaylyn Bernal, Family Medicine, Encounter Date: 08/10/2024 Results Created Date Observation Date Name Description Value Unit Range Abnormal Flag Note LastModifiedBy Organization Detail LastModifiedTime 04/16/2004/17/2024 LIPID PANEL WITH RATIO S cholesterol, total 187 mg/dL <200 normal Not Available [employer] [facility] [address] [place], [address], 04/17/2024 10:19:11 04/16/20 24 04/17/2024 LIPID PANEL WITH RATIO S HDL cholesterol 54 mg/dL > or = 50 normal Not Available [employer] [facility] [address] [place], [address], 04/17/2024 10:19:11 04/16/20 24 04/17/2024 LIPID PANEL WITH RATIO S triglyceride s 229 mg/dL <150 high If a non-f astin g speci men was colle cted, consi jimenez repea t trigl yceri de testi ng on a fasti ng speci men if clini joi indic ated. Ryan adames et al. J. of Clin. Lipid ol. 2015; 9:129 -169. Not Available [facility] [address] [place], [address], 04/17/2024 10:19:11 04/16/2004/17/2024 LIPID PANEL WITH RATIO S LDL-choleste rol 98 mg/dL _(mary c) normal Refer ence range : <100 Hermes able range <100 mg/dL for prima ry preve ntion ; <70 mg/dL for patie nts with CHD or diabe tic patie nts with > or = 2 CHD risk facto rs. LDL-C is now calcu lated using the Jacquie n-Hop kins calcu ramón n, which is a valid ated novel cirilo cancino accur acy than the Fried amber equat ion in the estim ation of LDL-C . Jacquie wilkins SS et al. SERGIO. 2013; 310(1 9): 2061- 2068 (http ://ed ucati on.Qu Hien BrandBackers. com/f aq/FA Q164) Not Available [facility] [address] [place], [address], 04/17/2024 10:19:11 04/16/20 24 04/17/2024 LIPID PANEL WITH RATIO S chol/HDLC ratio 3.5 (calc ) <5.0 normal Not Available [facility] [address] [place], [address], 04/17/2024 10:19:11 04/16/20 24 04/17/2024 LIPID PANEL WITH RATIO S LDL/HDL ratio 1.8 (calc ) Below avera ge Risk: <2.34 Argyle ge Risk: 2.35- 4.12 Moder ate Risk: 4.13- 5.56 High Risk: >5.57 Not Available [place] [address] [place], [address], 04/17/2024 10:19:11 04/16/2004/17/2024 LIPID PANEL WITH RATIO S non HDL cholesterol 133 mg/dL _(mary c) <130 high For patie nts with diabe jolynn plus 1 major ASCVD risk facto r, treat ing to a non-H DL-C goal of <100 mg/dL (LDL- C of <70 mg/dL ) is consi dered a thera peuti c optio n. Not Available [employer] [facility] [place] [address] [place], [address], 04/17/2024 10:19:11 04/16/2004/17/2024 BASIC METAB OLIC PANEL glucose 109 mg/dL 65-99 high Fasti ng refer ence inter holley For someo ne witho ut known diabe jolynn, a gluco se value betwe en 100 and 125 mg/dL is consi stent with predi abete s and shoul d be confi rmed with a follo w-up test. Not Available [facility] [place] [address] [place], [address], 04/17/2024 10:19:13 04/16/2004/17/2024 BASIC METAB OLIC PANEL urea nitrogen (BUN) 27 mg/dL 7-25 high Not Available [facility] [place] [address] [place], [address], 04/17/2024 10:19:13 04/16/2004/17/2024 BASIC METAB OLIC PANEL creatinine 0.90 mg/dL 0.60-0 .95 normal Not Available [facility] [place] [address] [place], [address], 04/17/2024 10:19:13 04/16/2004/17/2024 BASIC METAB OLIC PANEL eGFR 64 mL/mi n/1.7 3m2 > or = 60 normal Not Available [address], [address], 04/17/2024 10:19:13 04/16/2004/17/2024 BASIC METAB OLIC PANEL BUN/creatini ne ratio 30 (calc ) 6-22 high Not Available [address], [address], 04/17/2024 10:19:13 04/16/2004/17/2024 BASIC METAB OLIC PANEL sodium 140 mmol/ L 135-14 6 normal Not Available [address], [address], 04/17/2024 10:19:13 04/16/2004/17/2024 BASIC METAB OLIC PANEL potassium 3.7 mmol/ L 3.5-5. 3 normal Not Available [address], [address], 04/17/2024 10:19:13 04/16/2004/17/2024 BASIC METAB OLIC PANEL chloride 101 mmol/ L 98-110 normal Not Available [address], [address], 04/17/2024 10:19:13 04/16/2004/17/2024 BASIC METAB OLIC PANEL carbon dioxide 32 mmol/ L 20-32 normal Not Available [address], [address], 04/17/2024 10:19:13 04/16/2004/17/2024 BASIC METAB OLIC PANEL calcium 9.0 mg/dL 8.6-10 .4 normal Not Available [address], [address], 04/17/2024 10:19:13 04/16/20 24 04/17/2024 HEPAT IC FUNCT ION PANEL protein, total 6.4 g/dL 6.1-8. 1 normal Not Available [address], [address], 04/17/2024 10:19:15 04/16/20 24 04/17/2024 HEPAT IC FUNCT ION PANEL albumin 3.9 g/dL 3.6-5. 1 normal Not Available [address], [address], 04/17/2024 10:19:15 04/16/2004/17/2024 HEPAT IC FUNCT ION PANEL globulin 2.5 g/dL_ (calc ) 1.9-3. 7 normal Not Available [address], [address], 04/17/2024 10:19:15 04/16/2004/17/2024 HEPAT IC FUNCT ION PANEL albumin/glob ulin ratio 1.6 (calc ) 1.0-2. 5 normal Not Available [address], [address], 04/17/2024 10:19:15 04/16/20 24 04/17/2024 HEPAT IC FUNCT ION PANEL bilirubin, total 0.6 mg/dL 0.2-1. 2 normal Not Available [address], [address], 04/17/2024 10:19:15 04/16/20 24 04/17/2024 HEPAT IC FUNCT ION PANEL bilirubin, direct 0.1 mg/dL < or = 0.2 normal Not Available [address], [address], 04/17/2024 10:19:15 04/16/20 24 04/17/2024 HEPAT IC FUNCT ION PANEL bilirubin, indirect 0.5 mg/dL _(mary c) 0.2-1. 2 normal Not Available [place] [address] [place], [address], 04/17/2024 10:19:15 04/16/2004/17/2024 HEPAT IC FUNCT ION PANEL alkaline phosphatase 79 U/L 37-153 normal Not Available [facility] [employer] [address], [address], 04/17/2024 10:19:15 04/16/2004/17/2024 HEPAT IC FUNCT ION PANEL AST 10 U/L 10-35 normal Not Available [address], [address], 04/17/2024 10:19:15 04/16/2004/17/2024 HEPAT IC FUNCT ION PANEL ALT 16 U/L 6-29 normal Not Available [address], [address], 04/17/2024 10:19:15 04/16/2004/17/2024 CBC (INCL UDES DIFF/ PLT) white blood cell count 7.8 thous and/u L 3.8-10 .8 normal Not Available [address], [address], 04/17/2024 05:32:45 04/16/2004/17/2024 CBC (INCL UDES DIFF/ PLT) red blood cell count 5.02 glenn on/uL 3.80-5 .10 normal Not Available [address], [address], 04/17/2024 05:32:45 04/16/2004/17/2024 CBC (INCL UDES DIFF/ PLT) hemoglobin 14.0 g/dL 11.7-1 5.5 normal Not Available [employer] [address], [address], 04/17/2024 05:32:45 04/16/20 24 04/17/2024 CBC (INCL UDES DIFF/ PLT) hematocrit 43.0 % 35.0-4 5.0 normal Not Available [address], [address], 04/17/2024 05:32:45 04/16/20 24 04/17/2024 CBC (INCL UDES DIFF/ PLT) MCV 85.7 fL 80.0-1 00.0 normal Not Available [address], [address], 04/17/2024 05:32:45 04/16/2004/17/2024 CBC (INCL UDES DIFF/ PLT) MCH 27.9 pg 27.0-3 3.0 normal Not Available [address], [address], 04/17/2024 05:32:45 04/16/2004/17/2024 CBC (INCL UDES DIFF/ PLT) MCHC 32.6 g/dL 32.0-3 6.0 normal For adult s, a sligh t decre ase in the calcu lated MCHC value (in the range of 30 to 32 g/dL) is most likel y not clini joi signi fican t; alyx er, it shoul d be inter prete d with cauti on in [facility] n with other red cell tin eters and the patie nt's clini mary condi tion. Not Available [facility] [address], [address], 04/17/2024 05:32:45 04/16/2004/17/2024 CBC (INCL UDES DIFF/ PLT) RDW 15.4 % 11.0-1 5.0 high Not Available [address], [address], 04/17/2024 05:32:45 04/16/2004/17/2024 CBC (INCL UDES DIFF/ PLT) platelet count 248 thous and/u L 140-40 0 normal Not Available [address] [place], [address], 04/17/2024 05:32:45 04/16/2004/17/2024 CBC (INCL UDES DIFF/ PLT) MPV 10.8 fL 7.5-12 .5 normal Not Available [address], [address], 04/17/2024 05:32:45 04/16/2004/17/2024 CBC (INCL UDES DIFF/ PLT) absolute neutrophils 5920 cells /uL 1500-7 800 normal Not Available [address], [address], 04/17/2024 05:32:45 04/16/2004/17/2024 CBC (INCL UDES DIFF/ PLT) absolute lymphocytes 1435 cells /uL 850-39 00 normal Not Available [address], [address], 04/17/2024 05:32:45 04/16/2004/17/2024 CBC (INCL UDES DIFF/ PLT) absolute monocytes 367 cells /uL 200-95 0 normal Not Available [address] [place], [address], 04/17/2024 05:32:45 04/16/2004/17/2024 CBC (INCL UDES DIFF/ PLT) absolute eosinophils 47 cells /uL 15-500 normal Not Available [address], [address], 04/17/2024 05:32:45 04/16/2004/17/2024 CBC (INCL UDES DIFF/ PLT) absolute basophils 31 cells /uL 0-200 normal Not Available [address] [place], [address], 04/17/2024 05:32:45 04/16/20 24 04/17/2024 CBC (INCL UDES DIFF/ PLT) neutrophils 75.9 % normal Not Available [address], [address], 04/17/2024 05:32:45 04/16/20 24 04/17/2024 CBC (INCL UDES DIFF/ PLT) lymphocytes 18.4 % normal Not Available [address], [address], 04/17/2024 05:32:45 04/16/2004/17/2024 CBC (INCL UDES DIFF/ PLT) monocytes 4.7 % normal Not Available [facility] [address], [address], 04/17/2024 05:32:45 04/16/20 24 04/17/2024 CBC (INCL UDES DIFF/ PLT) eosinophils 0.6 % normal Not Available [address], [address], 04/17/2024 05:32:45 04/16/20 24 04/17/2024 CBC (INCL UDES DIFF/ PLT) basophils 0.4 % normal Not Available [address], [address], 04/17/2024 05:32:45 04/16/2004/17/2024 HEMOG LOBIN A1C hemoglobin A1C 6.2 %_of_ total _HGB <5.7 high For someo ne witho ut known diabe jolynn, a hemog lobin A1c value betwe en 5.7% and 6.4% is consi stent with predi abete s and shoul d be confi rmed with a follo w-up test. For someo ne with known diabe jolynn, a value <7% indic ates that their diabe jolynn is well contr olled . A1c targe ts shoul d be indiv idual ized based on durat ion of diabe jolynn, age, comor bid condi tions , and other consi derat ions. This assay resul t is consi stent with an incre ased risk of diabe jolynn. Curre ntly, no conse nsus exist s josy rollins use of hemog lobin A1c for diagn osis of diabe jolynn for child sebastien. Not Available [employer] [facility] [address], [place], [address], 04/17/2024 18:18:07 04/25/20 24 04/25/2024 CT, brain , w/o contr ast No observ ation record ed. [facility] [address] [facility] [address], [place], [address], 04/26/2024 16:40:35 10/09/19 25 10/08/2024 US, doppl er, venou s No observ ation record ed. [place] [address] [facility] [address], [place], [address], 10/08/2024 16:30:25 Result Notes None recorded. Problems Name Problem SNOMED Code Status Onset Date Resolution Date Notes Provider Name and Address Organization Details Recorded Time Chronic kidney disease stage 3A 069706672 Active 2023 Jaylyn Bernal DO Attn: Maggie pizano,[address] [place], [address], [facility] - SI 4 11:59:51 Coronary arterioscle rosis 71344474 Active 2023 Jaylyn Bernal DO Attn: Maggie pizano,[address] [place], [address], [place] - [facility] 4 11:59:52 Paroxysmal atrial fibrillatio n 112921109 Active 2023 Jayyln Bernal DO Attn: Maggie pizano,[address] [place], [address], [facility] - SI 4 11:59:53 Osteoarthri tis 583172307 Active 2023 Jaylyn Bernal DO Attn: Maggie pizano,[address], [place], [address], [place] - [facility] 4 11:59:54 Type 2 diabetes mellitus without complicatio n 887372084 Active 2023 Jaylyn Bernal DO Attn: Accountin g,[address] [facility], [place], [address], [place] - [facility] 4 11:59:56 Seronegativ e rheumatoid arthritis 186035292 Active 2023 Jaylyn Bernal DO Attn: Accountin g,[address] [facility], [place], [address], [place] - [facility] 4 11:59:57 History of giant cell arteritis 2311436229844 09 Active 2023 Jaylyn Bernal DO Attn: Accountin g,[address] [facility], [place], [address], [place] [facility] 4 11:59:59 Age related macular degeneratio n 001565491 Active 2023 Jaylyn Bernal DO Attn: Accountin g,[address] [facility], [place], [address], [place] [facility] 4 12:00:00 Paresthesia 09393042 Active 2023 Jaylyn Bernal DO Attn: Accountin g,[address] [facility], [place], [address], [place] [facility] 4 12:00:01 Chronic fatigue syndrome 58792320 Active 2023 Jaylyn Bernal DO Attn: Accountin g,[address] [facility], [place], [address], [place] - [facility] 4 12:00:02 Monoclonal gammopathy of uncertain significanc e 469112844 Active 2023 Jaylyn Bernal DO Attn: Accountin g,[address] [facility], [place], [address], [place] - [facility] 4 12:00:03 Chronic pain syndrome 191352323 Active 2023 Jaylyn Bernal DO Attn: Britpat pizano,[address] [place], [address], [place] [facility] 4 12:00:04 Spinal stenosis of lumbar region 76710731 Active 2023 Jaylyn Bernal DO Attn: Maggie jerica,[address] [place], [address], [place] [facility] 4 12:00:06 Polymyalgia rheumatica 86531309 Active 2023 Jaylyn Bernal DO Attn: Maggie jerica,[address] [place], [address], [place] - [facility] 4 12:00:06 Vitamin D deficiency 41366746 Active 2023 Jaylyn Bernal DO Attn: Maggie jerica,[address] [place], [address], [place] [facility] 4 12:00:08 Hyperlipide sherri 12884045 Active 2023 Jaylyn Bernal DO Attn: Maggie jerica,[address] [place], [address], [place] [facility] 4 12:00:10 Essential hypertensio n 27984129 Active 2023 Jaylyn Bernal DO Attn: Maggie jerica,[address] [place], [address], [place] [facility] 4 12:00:11 Vertigo 002742663 Active 2023 Jaylyn Bernal DO Attn: Maggie jerica,[address] [place], [address], [place] - [facility] 4 14:16:51 Post-discha rge follow-up 358711551 Active 2023 Jaylyn Bernal DO Attn: Maggie jerica,[address] [place], [address], [place] - [facility] 09:52:47 Problem Notes None recorded. Procedures Surgical History None recorded. Imaging Results Imaging Date Name Status LastModified by Organiz ation Details LastModified Time 04/25/2024 CT, brain, w/o contrast completed [address], [place], [address], 04/26/2024 16:40:35 10/08/2024 US, doppler, venous active [place] [address] [facility] [address], [place], [address], 10/08/2024 16:30:25 Procedure Notes None recorded. Medical Equipment None Reported. Allergies Allergen ID Allergen Name Allergen Category Reaction Reaction Severity Criticality Documentation Date Start Date Code Code System Note Provider Name and Address Organization Details Recorded Time 890117 Product containin g penicilli n (product) medicatio n myalgias (muscle pain) Not available Not available 07/26/2023 92527 8001 SNOMED Not Available Not Available Not Available 414237 Substance with sulfonami de structure and antibacte rial mechanism of action (substanc e) medicatio n rash Not available Not available 07/26/2023 94069 8003 SNOMED Not Available Not Available Not Available 738159 gentamici n medicatio n hives Not available high 07/26/20232019 91718 50 RxNorm Not Available Not Available Not Available 869681 Rocephin medicatio n Not available Not available Not available 07/26/2023 9449 RxNorm anxie ty and night fan Not Available Not Available Not Available 204952 Levaquin medicatio n anaphylax is Not available Not available 07/26/2023 47849 2 RxNorm anxie ty insom kenroy Not Available Not Available Not Available 778023 Cipro medicatio n Not available Not available Not available 07/26/2023 04691 3 RxNorm insom kenroy and night fan Not Available Not Available Not Available 843897 Macrobid medicatio n Not available Not available Not available 07/26/2023 44969 1 RxNorm rash Not Available Not Available Not Available 839590 losartan medicatio n other moderate high 05/15/2024 65830 RxNorm black ed out and felt not like herse lf Not Available Not Available Not Available 330360 Bifidobac terium infantis medicatio n rash Not available high 08/10/20242021 65440 3 RxNorm gummi es Not Available Not Available Not Available 231731 ceftriaxo ne medicatio n dyspnea rash Not available Not available high 08/10/20242017 2193 RxNorm Not Available Not Available Not Available 609245 ceftriaxo ne sodium medicatio n dyspnea rash Not available Not available high 08/10/20242017 83554 2 RxNorm Not Available Not Available Not Available 580335 levofloxa julius medicatio n rash Not available high 08/10/20242017 06394 RxNorm unrec ogniz ed react ion (text : Synco pe, code: [id number]) (from [facility]) Not Available Not Available Not Available Medications Name Sig Start Date Stop Date Status Note LastModified by Organization Details LastModified Time prednisone 10 mg tablet Take 1 tablet every day by oral route. 01/31 completed Not Available Not Available Not Available doxycycline hyclate 100 mg capsule TAKE 1 CAPSULE BY MOUTH TWICE DAILY FOR 7 DAYS 08/11 completed Not Available Not Available Not Available prednisone 5 mg tablet TAKE 1 TABLET BY MOUTH ONCE DAILY active Not Available Not Available No t Available amlodipine 2.5 mg tablet TAKE 1 TABLET BY MOUTH ONCE DAILY active Not Available Not Available No t Available ciprofloxac in 500 mg tablet TAKE 1 TABLET BY MOUTH EVERY 12 HOURS FOR 7 DAYS 08/11 completed Not Available Not Available Not Available triamterene 37.5 mg-hydrochl orothiazide 25 mg capsule TAKE 2 CAPSULES BY MOUTH ONCE DAILY active Not Available Not Available No t Available OneTouch Ultra Test strips USE 1 STRIP TO CHECK GLUCOSE ONCE DAILY active Not Available Not Available No t Available meclizine 25 mg tablet TAKE 1 TABLET BY MOUTH 3 TIMES A DAY NEEDED 05/04 completed Not Available Not Available Not Available diazepam 2 mg tablet TAKE 1/2 (ONE-HALF ) TABLET BY MOUTH ONCE DAILY AT BEDTIME 08/10 completed Not Available Not Available Not Available doxycycline monohydrate 100 mg capsule TAKE 1 CAPSULE BY MOUTH TWICE A DAY FOR 10 DAYS 07/27 completed Not Available Not Available Not Available hydroxyzine HCl 25 mg tablet TAKE 1 TABLET BY MOUTH 3 TIMES DAILY NEEDED FOR ITCHING. 11/21 completed Not Available Not Available Not Available furosemide 20 mg tablet Take 1 tablet every day by oral route. active Not Available Not Available No t Available gabapentin 100 mg capsule TAKE 1 CAPSULE BY MOUTH EVERY DAY NIGHTLY 11/21 completed Not Available Not Available Not Available ondansetron 4 mg disintegrat ing tablet Place 1 tablet twice a day by transling ual route as needed for 3 days. 08/10 completed Not Available Not Available Not Available metformin ER 500 mg tablet,exte nded release 24 hr TAKE 1 TABLET BY MOUTH TWICE A DAY 11/21 completed Not Available Not Available Not Available fluticasone propionate 110 mcg/actuati on HFA aerosol inhaler Inhale 1 puff twice a day by inhalatio n route. 11/21 completed Not Available Not Available Not Available Microlet Lancet USE 1 TO CHECK GLUCOSE ONCE DAILY 08/10 completed Not Available Not Available Not Available tobramycin 0.3 %-dexametha sone 0.1 % eye drops,suspe nsion INSTILL 1 DROP INTO RIGHT EYE 4 TIMES DAILY -START DROPS AFTER SURGERY active Not Available Not Available No t Available rosuvastati n 5 mg tablet Take 1 tablet by mouth once daily 2024 active Not Available Not Available Not Avai lable pregabalin 75 mg capsule TAKE 1 CAPSULE (75 MG) BY MOUTH DAILY AT BEDTIME. 11/21 completed Not Available Not Available Not Available Nikki Allergy 180 mg tablet Take 1 tablet every day by oral route for 90 days. 11/21 completed Not Available Not Available Not Available Contour Next Test Strips active Not Available Not Available Not Available Eliquis 5 mg tablet TAKE 1 TABLET BY MOUTH TWICE DAILY active Not Available Not Available No t Available Ozempic 1 mg/dose (2 mg/1.5 mL) subcutaneou s pen injector Inject 1 mL every week by subcutane ous route. 08/10 completed Not Available Not Available Not Available OneTouch Ultra2 Meter USE TO CHECK GLUCOSE ONCE DAILY active Not Available Not Available No t Available OneTouch Delica Plus Lancet 33 gauge USE 1 TO CHECK GLUCOSE ONCE DAILY active Not Available Not Available No t Available Ozempic 1 mg/dose (4 mg/3 mL) subcutaneou s pen injector INJECT 1 ML SUBCUTANE OUSLY ONCE A WEEK active Not Available Not Available No t Available Ozempic 0.25 mg or 0.5 mg (2 mg/3 mL) subcutaneou s pen injector active Not Available Not Available Not Available Vitals Date Recorded Body height Body mass index (BMI) Body weight Oxygen saturation Oxygen saturation in Arterial blood by Pulse oximetry Heart rate Provider Name and Address Organization Details Last Updated DateTime 4 161.29 cm 31.5 kg/m2 18737.7 3 g 98 % 98 % 70 /min Kim Ruano MA [facility] 12:05:25 Date Recorded Systolic blood pressure Diastolic blood pressure Provider Name and Address Organization Details Last Updated DateTime 04/12/2024 122 mm[Hg] 84 mm[Hg] Jaylyn Bernal DO Attn: Accounting,[address] [place], [address], [facility] 04/12/2024 13:07:16 Date Recorded Body height Body mass index (BMI) Body weight Oxygen saturation Oxygen saturation in Arterial blood by Pulse oximetry Heart rate Provider Name and Address Organization Details Last Updated DateTime 4 161.29 cm 31.8 kg/m2 79654.5 1 g 99 % 99 % 57 /min Sheri Gonzales MA [facility] 4 09:19:35 Date Recorded Systolic blood pressure Diastolic blood pressure Provider Name and Address Organization Details Last Updated DateTime 05/04/2024 172 mm[Hg] 96 mm[Hg] Jaylyn Bernal DO Attn: Accounting,[address] [place], [address], [facility] 05/04/2024 09:57:51 Date Recorded Body height Body mass index (BMI) Body weight Oxygen saturation Oxygen saturation in Arterial blood by Pulse oximetry Heart rate Provider Name and Address Organization Details Last Updated DateTime 4 161.29 cm 31.4 kg/m2 99981.0 3 g 98 % 98 % 69 /min Sheri Gonzales MA [facility] 11:06:55 Date Recorded Systolic blood pressure Diastolic blood pressure Provider Name and Address Organization Details Last Updated DateTime 05/15/2024 138 mm[Hg] 78 mm[Hg] Jaylyn Bernal DO Attn: Accounting,[address] [place], [address] 05/15/2024 11:54:54 Date Recorded Body height Body mass index (BMI) Body weight Provider Name and Address Organization Details Last Updated DateTime 08/10/2024 161.29 cm 32.6 kg/m2 52013.12 g Jesusita Lacy MA [facility] 08/10/2024 11:58:48 Date Recorded Systolic blood pressure Diastolic blood pressure Provider Name and Address Organization Details Last Updated DateTime 08/10/2024 132 mm[Hg] 84 mm[Hg] Jaylyn Bernal DO Attn: Accounting,[address] [place], [address] 08/10/2024 12:24:10 Date Recorded Body height Body mass index (BMI) Body weight Oxygen saturation Oxygen saturation in Arterial blood by Pulse oximetry Heart rate Provider Name and Address Organization Details Last Updated DateTime 161.29 cm 32.4 kg/m2 69561.1 8 g 98 % 98 % 76 /min Manuel Quinonez MA [facility] 13:19:34 Date Recorded Systolic blood pressure Diastolic blood pressure Provider Name and Address Organization Details Last Updated DateTime 10/08/2024 140 mm[Hg] 82 mm[Hg] Jaylyn Bernal DO Attn: Accounting[address] [place], [address] 10/08/2024 13:51:50 Social History Question Answer Notes LastModified by Organizat ion Details LastModified Time Tobacco Smoking Status Never Smoker Tiffany Arredondo MA null, [facility] 07/26/2023 15:36:24 What Is Your Level Of Alcohol Consumption? None Information not available 08/11/2023 What Is Your Level Of Caffeine Consumption? Occasional Information not available 08/11/2023 What Was The Date Of Your Most Recent Tobacco Screening? 08/10/2024 Information not available 08/10/2024 Do You Use Any Illicit Or Recreational Drugs? No Information not available 08/11/2023 Has Tobacco Cessation Counseling Been Provided? Yes aphifferma Information not available 04/12/2024 On What Date Was Tobacco Cessation Counseling Provided? 08/10/2024 Information not available 08/10/2024 Do You Or Have You Ever Used Any Other Forms Of Tobacco Or Nicotine? No Information not available 08/11/2023 Sex: Unknown Functional Status None recorded. Mental Status None recorded. Family History Nothing Reported. Medical History Condition Response Coronary Artery Disease N Other N High Blood Pressure Y Atrial Fibrillation Y Thyroid Problems N Kidney or Bladder Problems N GI Problems Y Depression N COPD N Blood Clots Y Skin Problems Y Eating Disorder N Anemia N Heart Attack (ME) Y Anxiety Disorder N Diabetes Y Muscle, Joint, or Bone Problems Y Arthritis N Seizures/Epilepsy N Acid Reflux (GERD) Y Cancer N Stroke N Asthma Y Allergies Y ADHD N Substance Abuse N High Cholesterol Y Hepatitis N Liver Disease N Schizophrenia N Headaches Y Heart Failure N Osteoporosis N Gynecological HistoryNo gynecological history recorded. Obstetrics History GPAL:G 0 P 0 0 0 0 Past Encounters Encounter ID Performer Location Encounter Start Date Encounter Closed Date Diagnosis/Indication Diagnosis SNOMED-CT Code Diagnosis ICD10 Code Diagnosis Note [id number] Tiffany Arredondo MA [facility] ([facility]) [address] [place] [address] 07/26/2023 14:50:14 07/28/2023 12:49:35 Acute urinary tract infection 224341034 N39.0 UA pos. for nit. and leuks. despite taking previously prescribed doxycyclin e per [facility] dt limitation s w/ ABT options as a result of multiple drug allergies reported on pt behalf.Cul ture reviewed per OSFfu as needed w/ PCPhydrati on and rest encouraged report to ED if s/s worsen or experience CP, SOB, DUQUE or the likewipe front to back and no bubble bathsPt reports cipro as an allergy (insomnia) . Pt to trial and call [facility] w/ any concerns dt multi-drug allergy. Seasonal allergy 2422365 04 J30.2 medication refill Overweight 944734822 E66 .3 Considerat ion for increasing Ozempic to be given on 08/11/23 w/ PCP isael g patient reports no evidence of weight loss noted. Unable to trend dt lack of vitals per prior EHR system. Nausea 360184150 R11.0 fu as neededhydr ation and rest encouraged may resolve once ABT is effectiveC all CCC if lacking resolution keep new pt appt. w/ PCP for 08/11/23 [id number] Jaylyn Bernal, DO [facility] [place] [facility] [address] [place] [address] 08/11/2023 10:57:15 08/12/2023 12:24:59 Essential hypertension 14118729 I10 Dyazide 25 mg daily Hyperlipidemia 29560814 E78.5 Rosuvastat in 5 mg daily Vitamin D deficiency 347 16127 E55.9 stable Polymyalgi a rheumatica 76299623 M35.3 stable Spinal mati nosis of lumbar region 32666665 M48.061 stable Chronic pain syndrome 37 8860161 G89.4 pregabalin Monoclonal gammopathy of uncertain significance 933341362 D47.[address] Chronic fa tigue syndrome 99711699 R53.82 stable Paresthesia 59106586 R20 .2 no new orders Age relate d macular degeneration 685727511 H35.30 sees optho History of giant cell arteritis 1262042914 20144 Z86.79 stable Seronegati ve rheumatoid arthritis 308087672 M06.00 sees rheumatolo gist Type 2 karel betes mellitus without complication 181777545 E11.9 check labon ozempic Osteoarthritis 425130999 M19.90 stable Paroxysmal atrial fibrillation 222504975 I48.0 stableon eliquis Coronary arteriosclerosis 93389215 I25.10 on eliquis Chronic ki dney disease stage 3A 196261862 N18.31 stablerech pamela lab Obesity 068134488 E66.9 healthy diet [id number] Jaylyn Bernal, DO [facility] [place] [facility] [address] [place] [address] 11/22/2023 13:29:10 11/22/2023 15:08:34 Paroxysmal atrial fibrillation 057256483 I48.0 stableon eliquis Vertigo 497184627 R42 antivertne eds a stat ct of the headno headachesn eurologic exam unremarkab [facility] for eval Essential hypertension 94645549 I10 Dyazide 25 mg dailychron ic conditionn ot at goal Chronic ki dney disease stage 3A 364433309 N18.31 stablerech pamela lab [id number] Jaylyn Huang'Neill, DO [facility] [place] [facility] [address] [place] [address] 11/29/2023 13:58:47 11/29/2023 15:35:58 Age related macular degeneration 005928052 H35.30 sees opthoChron ic condition Chronic ki dney disease stage 3A 471183894 N18.31 Chronic condition Chronic pain syndrome 37 3159023 G89.4 pregabalin chronic condition Continue current treatment Coronary arteriosclerosis 05791020 I25.10 on eliquischr onic conditionc ontinue current treatment Essential hypertension 77406574 I10 Dyazide 25 mg dailychron ic conditionn ot at goal Post-disch arge follow-up 936798418 Z09 follow up ER due to vertigoct head unremarkab letaking a half of a meclizine 25 mg tidnot much helplab reviewedfe ll 3 days agoadd prednisone 10 mg daily 4 daysmri brainsee ENT [id number] Jaylyn Bernal, DO [facility] [place] [facility] [address] [place] [address] 12/19/2023 14:05:35 12/19/2023 14:54:50 Essential hypertension 72828571 I10 Dyazide 25 mg dailychron ic conditiona t goal Vertigo 685396806 R42 antivertha d a recent mri brainno headachesn eurologic exam unremarkab lemri reviewed and discussed with the ptwill monitorif has ongoing issues we discussed a mri with michael escalona ENT reviewed ENNT note Chronic ki dney disease stage 3A 170702229 N18.31 Chronic condition Coronary arteriosclerosis 60935930 I25.10 on eliquischr onic conditionc ontinue current treatment Hyperlipidemia 39701150 E78.5 Rosuvastat in 5 mg dailychron ic conditiona t goal [id number] Jaylyn [place], [facility] [place] [facility] [place] [address] [facility] [address] [place] [address] 04/12/2024 11:56:47 04/12/2024 14:36:51 Age related macular degeneration 942401329 H35.30 sees opthoChron ic condition Chronic fa tigue syndrome 37836120 R53.82 stable Chronic ki dney disease stage 3A 032518793 N18.31 Chronic conditions tablemaint ain BP Coronary arteriosclerosis 82147065 I25.10 on eliquischr onic conditionc ontinue current treatment Essential hypertension 10576335 I10 Dyazide 25 mg dailychron ic conditiona t goal Monoclonal gammopathy of uncertain significance 430777393 D47.[address] Paroxysmal atrial fibrillation 344557106 I48.0 stableon eliquis Polymyalgi a rheumatica 90914058 M35.3 stable Type 2 karel betes mellitus without complication 347713361 E11.9 check labon ozempic Hyperlipidemia 18901973 E78.5 Rosuvastat in 5 mg dailychron ic conditiona t goal [id number] Jaylyn Bernal, DO [facility] [place] [facility] [place] [address] [facility] [address] [place] [address] 05/04/2024 09:13:29 05/04/2024 10:12:07 Post-discharge follow-up 372432539 Z09 follow up ER due to vertigoct head unremarkab letaking a half of a meclizine 25 mg tidlab reviewed mri brain reviewedse e ENT Coronary arteriosclerosis 10312549 I25.10 on eliquischr onic conditionc ontinue current treatment Chronic ki dney disease stage 3A 940919429 N18.31 Chronic conditions tablemaint ain BP Essential hypertension 57323615 I10 Dyazide 25 mg dailychron ic conditionn ot at goaladd norvasc 2.5 mg daily Type 2 karel betes mellitus without complication 747642697 E11.9 check labon ozempicblo od sugars doing well [id number] Jaylyn Bernal, DO [facility] [place] [address] [facility] [address] [place] [address] 05/15/2024 11:01:02 05/15/2024 12:06:59 Type 2 diabetes mellitus without complication 553163693 E11.9 on ozempicblo od sugars doing well Polymyalgi a rheumatica 57645819 M35.3 stable Paroxysmal atrial fibrillation 935611733 I48.0 stableon eliquiswil l need to dc eliquis 5 days prior to surgery Pre-surger y evaluation 399535185 Z01.818 meds reviewedwi ll need to hold eliquis and ozempic prior to surgerydis cussed with her [id number] Jaylyn Bernal, DO [facility] [address] [facility] [address] [place] [address] 08/10/2024 11:47:33 08/13/2024 14:33:10 Age related macular degeneration 945189315 H35.30 sees opthoChron ic condition Chronic fa tigue syndrome 29338347 R53.82 stable Chronic ki dney disease stage 3A 670920590 N18.31 Chronic conditions tablemaint ain BP Chronic pain syndrome 37 2952383 G89.4 pregabalin chronic condition Continue current treatment Coronary arteriosclerosis 27249516 I25.10 on eliquischr onic conditionc ontinue current treatment Essential hypertension 19850355 I10 Dyazide 25 mg dailychron ic conditiona t goalnorvas c 2.5 mg daily Paroxysmal atrial fibrillation 618171409 I48.0 stableon eliquis Type 2 karel betes mellitus without complication 423644838 E11.9 on ozempicblo od sugars doing well Spinal mati nosis of lumbar region 58915115 M48.061 will order PT for increase strength and balance Obesity 843480751 E66.9 healthy diet Health Concerns Section Related Observation LastModified by Organization Detai ls LastModified Time None Recorded Concern Status LastModified by Organization Details LastModified Time None Recorded Advance Directives Directive None Recorded Payers Encounter Date Sequence Insurance Name Policy Number Policy Guerra Covered Member ID Guerra Member ID Guarantor Name 04/12/2024 1 [employer] - PRIME (MEDICARE REPLACEMENT/ ADVANTAGE - HMO) [id number] Nichole H Ruann [id number] Nichole Ruhmann 05/04/2024 1 [employer] - [employer]IME (MEDICARE REPLACEMENT/ ADVANTAGE - HMO) [id number] Nichole H Ruhmann [id number] Nichole Ruhmann 05/15/2024 1 [employer] - PRIME (MEDICARE REPLACEMENT/ ADVANTAGE - HMO) [id number] Nichole H Ruhmann [id number] Nichole Ruhmann 08/10/2024 1 [employer] - PRIME (MEDICARE REPLACEMENT/ ADVANTAGE - HMO) [id number] Nichole H Ruann [id number] [facility] Notes Date Note Type Note Provider Name and Address Organization Details Recorded Time 04/12/2024 text/html routine 4 month follow Jaylyn Bernal DO Attn: Accounting,[address], [place], [address], [facility] 04/12/2024 17:50:06 05/04/2024 text/html follow up ERhas been having vertigo Jaylyn Bernal DO Attn: Accounting,[address], [place], [address], [place] [facility] 05/04/2024 13:12:42 05/15/2024 text/html pre op surgical clearance for eye surgeryhas a posterior vitreous detachmentand dense vitreous opacities Jaylyn Bernal DO Attn: Accounting,[address], [place], [address], [place] [facility] 05/15/2024 12:09:47 08/10/2024 text/html routine follow updoing well Jaylyn Bernal DO Attn: Accounting,[address], [place], [address], [place] [facility] 08/10/2024 14:43:26 OBGyn Episode No OBEpisode recorded.
--- OUTSIDE RECORDS SUMMARY | 2024-10-08 15:58 | XMS_ITS | Clinical Summary ---
Author Organization [facility] Address [facility] [place] [address] Care Team Providers Care Stationary Boiler Fireman Name Role Phone Tad Varghese DO Primary Care Provider [phone] Allergies Active Allergy Reactions Criticality Noted Date Comments Bifidobacterium Rash Medium 10/11/2021 gummies Ceftriaxone Rash,Shortness of Breath High 09/13/2017 Gentamicin Hives High 01/14/2020 Levofloxacin Rash,Syncope High 09/13/2017 Losartan Other (see comment),Shortnes s of Breath High 07/19/2018 Fainting and lowers bp to low Fainting and lowers BP Fainting and lowers bp to low Fainting and lowers bp to low Fainting and lowers bp to low Fainting and lowers bp to low Nitrofurantoin Rash Medium 09/13/2017 Ondansetron Other (see comment),Shortnes s of Breath High 02/09/2018 Headaches Headaches Headaches Penicillins Rash Medium 09/13/2017 myalgias myalgia myalgias myalgias Pentazocine Nausea and Vomiting,Other (see comment) Low 09/13/2017 halluciations Hallucinations halluciations halluciations Propoxyphene Rash Medium 09/13/2017 Sulfamethoxazole-Trimeth oprim Rash Medium 09/13/2017 Social History Tobacco Use Types Packs/Day Years Used Date Smoking Tobacco: Never Smokeless Tobacco: Never Tobacco Cessation:Counseling Given: Not Answered Comments Unknown Sex and Gender Information Value Date Recorded Sex Assigned at Not on file Legal Sex Female 7:53 PM CDT Gender Identity Not on file Sexual Orientation Not on file Last Filed Vital Signs Vital Sign Reading Time Taken Comments Blood Pressure 154/84 11/22/2023 2:07 PM CDT Pulse 67 11/22/2023 2:07 PM CDT Temperature 36.6 C (97.8 F) 11/22/2023 2:07 PM CDT Respiratory Rate 18 11/22/2023 2:07 PM CDT Oxygen Saturation 96% 11/22/2023 2:07 PM CDT Inhaled Oxygen Concentration - - Weight 80.3 kg (177 lb) 11/22/2023 2:07 PM CDT Height 162.6 cm (5' 4 ) 11/22/2023 2:07 PM CDT Body Mass Index 30.38 11/22/2023 2:07 PM CDT Plan of Treatment Health Maintenance Due Date Last Done Comments DTaP, Tdap and Td Vaccines ( 1 - Tdap) 1961 Zoster Vaccines (1 of 2) 1992 Annual Medicare Wellness Visit 11/27/2007 RSV Immunization or 60+ Years (1 - 1-dose 75+ series) 2017 COVID-19 Vaccine ( - 2023-2 5 season) 2024 02/27/2021, 02/06/2021 Pneumococcal Vaccine: 50+ Years Completed 01/02/2016, 06/13/2015, 06/27/2007 Dexa Scan (General) Completed 04/14/2023 Meningococcal B Vaccine Aged Out No l onger eligible based on patient's age to complete this topic Meningococcal Vaccine Aged Out No luis bacilio eligible based on patient's age to complete this topic RSV Immunizations Under 20 Months Aged Out No longer eligible b ased on patient's age to complete this topic Insurance AETNA Care Teams Stationary Boiler Fireman Relationship Specialty Start Date End Date Tad Varghese DO [address] [place] [phone] PCP - General FAMILY PRACTICE 11/22/23
--- OUTSIDE RECORDS SUMMARY | 2024-10-08 15:58 | XMS_ITS | Clinical Summary ---
Author Organization [facility] Address [address] [place] [address] Care Team Providers Care Director Stage Name Role Phone Liv Back APRN-EAR NOSE AND THROAT SPECIALIST Unavailable [phone] Dory Aguilar MD Unavailable Tad Colby DO Primary Care Provider + Source Comments [facility],non-owned Affiliates and Associated Physician Practices is amultiple site organization consisting of ambulatory clinics and hospital sitesin [place], [place], [place] and [place]. This disclosure is being madepursuant to the Care Everywhere program and may not contain all information available regarding this patient. Last updated 18.[facility] Allergies Active Allergy Reactions Criticality Noted Date Comments Ceftriaxone Rash,Shortness of Breath High 07/19/2018 Ceftriaxone Sodium In Dextrose Shortness of Breath,Rash High 09/13/2017 Gentamicin Urticaria Medium Levofloxacin Rash Medium 09/13/2017 Losartan Other 07/19/2018 Fainting and lowers bp to low Nitrofurantoin Rash Medium 09/13/2017 Penicillins Rash Medium 09/13/2017 myalgias Pentazocine Other Low 09/13/2017 halluciations Propoxyphene N-Apap Rash Medium 09/13/2017 Sulfamethoxazole W-Trimethoprim Rash Medium 09/13/2017 Ondansetron Other 02/09/2018 Headaches Medications * Be aware that medications may not be up to date on this document. Alwaysverify current medications with the patient. acetaminophen CR (TYLENOL ARTHRITIS PAIN) 650 MG tablet Take by mouth. 03/20/201 8 Active polyethyl glycol-propyl glycol (SYSTANE) 0.4-0.3 % ophth solution by Ophthalmic route. 8 Active B Complex Vitamins (B-COMPLEX/B-12 ) TABS Take by mouth DAILY. 8 Active furosemide (LASIX) 20 MG tablet Take 1 (one) tablet by mouth 8 Active [place]-3 Fatty Acids (FISH OIL) 1200 MG Take 1 tablet by mouth DAILY. 8 Active apixaban (ELIQUIS) 5 MG tablet Take 1 (one) tablet by mouth BID 8 Active triamterene-hyd roCHLOROthiazid e (MAXZIDE) 75-50 MG tablet Take 1 (one) tablet by mouth DAILY 8 Active albuterol (PROVENTIL; VENTOLIN) 90 MCG/ACT inhaler Inhale by mouth. 09/14/19 1 8 Active Vitamin D3 (CHOLECALCIFERO L) 2000 UNITS capsule Take 1 (one) capsule by mouth DAILY 8 Active Magnesium Citrate 200 MG TABS Take 1 tablet by mouth at bedtime Active Multiple Vitamins-Minera ls (ICAPS) TABS Take 1 (one) tablet by mouth once daily Active lansoprazole (PREVACID) 30 MG capsule Take 1 (one) capsule by mouth daily before breakfast Active Misc Natural Products (CURCUMAX PRO) TABS Active tiZANidine (ZANAFLEX) 2 MG tablet 9 Active methotrexate 2.5 MG tablet Take 4 tablets by mouth every 7 days 20 tablet 2 0 Active Additional Information Patient not taking.Reported on 02/18/2023 folic acid (FOLVITE) 1 MG tablet Take 1 tablet by mouth once daily 90 tablet 4 0 Active Additional Information Patient not taking.Reported on 04/03/2024 clobetasol (TEMOVATE) 0.05 % ointment 0 Active triamcinolone acetonide (KENALOG) 0.1 % ointment APPLY TO AFFECTED AREA TWICE A DAY FOR 10 DAYS 0 Active rosuvastatin (Crestor) 5 MG tablet Take 1 (one) tablet by mouth every evening 2 Active fluticasone propionate (Flonase) 50 MCG/ACT nasal spray [place] 1 (one) spray into each nostril 2 times daily 2 Active Semaglutide(0.2 5 or 0.5MG/DOS) 2 MG/3ML Solution Pen-injector (Ozempic (0.25 or 0.5 MG/DOSE)) 0.5 mg once daily 3 Active fexofenadine (Nikki Allergy) 180 MG tablet Take 1 tablet every day by oral route for 90 days. 4 Active fluticasone hfa 110 (Flovent HFA 110) 110 MCG/ACT inhaler Inhale 1 puff twice a day by inhalation route. 4 Active ondansetron, disintegrating, (Zofran ODT) [address] 1 tablet twice a day by translingual route as needed for 3 days. 4 Active predniSONE (Deltasone) 5 MG tablet Take 1 tablet by mouth once daily 30 tablet 5 4 Active Active Problems Problem Noted Date Diagnosed Date Seronegative rheumatoid arthritis 04/15/2020 PMR (polymyalgia rheumatica) 12/11/2018 Bilateral nonexudative age-related macular degen eration 02/09/2018 Amblyopia of eye, left 02/09/2018 Visual disturbance 09/13/2017 Other giant cell arteritis 09/13/2017 Other headache syndrome 09/13/2017 Stiffness of left hand joint 08/23/2017 Stiffness of right hand joint 08/23/2017 Trigger finger, left ring finger 08/23/2017 Hernia of anterior abdominal wall 07/06/2016 Overview (02/09/2018): Overview: Ventral hernia Hypertension 11/10/2013 Overview (02/09/2018): Overview: HYPERTENSION NOS Pure hypercholesterolemia 11/10/2013 Overview (02/09/2018): Overview: PURE HYPERCHOLESTEROLEM Vitamin D deficiency 11/10/2013 Overview (02/09/2018): Overview: VITAMIN D DEFICIENCY NOS Family History Medical History Relation Name Comments Cancer - Other Maternal Aunt Cancer - Other Mother Cataract Mother Hypertension Sister Relation Name Status Comments Maternal Aunt Mother Sister Social History Tobacco Use Types Packs/Day Years Used Date Smoking Tobacco: Never Smokeless Tobacco: Never Tobacco Cessation:Counseling Given: Not Answered Alcohol Use Standard Drinks/Week Comments No 0 (1 standard drink = 0.6 oz pur e alcohol) PHQ-2 Answer Date Recorded Patient Health Questionnaire-2 Score 0 02/18/2023 Comments Unknown Sex and Gender Information Value Date Recorded Sex Assigned at Not on file Legal Sex Female 5:58 PM CDT Gender Identity Not on file Sexual Orientation Not on file Last Filed Vital Signs Vital Sign Reading Time Taken Comments Blood Pressure 116/50 04/03/2024 11:37 AM CDT Pulse 65 04/03/2024 11:37 AM CDT Temperature - - Respiratory Rate 22 04/30/2022 11:15 AM CDT Oxygen Saturation 95% 04/30/2022 11:15 AM CDT Inhaled Oxygen Concentration - - Weight 82.3 kg (181 lb 6.4 oz) 04/03/2024 11:37 AM CDT Height 160 cm (5' 3 ) 04/03/2024 11:37 AM CDT Body Mass Index 32.13 04/03/2024 11:37 AM CDT Plan of Treatment Upcoming Encounters Date Type Department Care Team (Late st Contact Info) Description 12/07/2024 11:20 AM CDT Office Visit [facility] - Rheumatology [address] [place] [address] [phone] Dory Aguilar MD [address] [place] [address] [phone] Health Maintenance Due Date Last Done Comments DTAP/TDAP/TD VACCINES (1 - Tdap) 1959 PNEUMOCOCCAL VACCINE 50+ (1 of 1 - PCV) 1992 ZOSTER VACCINE (1 of 2) 1992 Respiratory Syncytial Virus (RSV) Vaccine Pt: or over 60 yrs (1 - 1-dose 75+ series) 2017 COVID-19 VACCINE ( - 2023-2 5 season) 2024 DEPRESSION SCREENING 06/27/2024 02/18/2023 MEDICARE AWV CALENDAR YEAR 2024 INFLUENZA VACCINE (Season Ended) 2025 06/13/2015, 05/31/2014 BONE DENSITY TESTING Completed 04/14/2023 HEPATITIS B VACCINE Aged Out No longe r eligible based on patient's age to complete this topic HIB VACCINE Aged Out No longer eligi ble based on patient's age to complete this topic HPV VACCINE Aged Out No longer eligi ble based on patient's age to complete this topic MENINGOCOCCAL (Group B) VACCINE SHARED DECISION-MAKING Aged Out No longer eligible based on patient's age to complete this topic MENINGOCOCCAL GROUPS A/C/Y/W VACCINE Aged Out No longer eligible b ased on patient's age to complete this topic Insurance [employer] MEDICARE AETNA MEDICARE ADV Care Teams Director Stage Relationship Specialty Start Date End Date Tad Colby DO [address] [place] [address] PCP - General Family Medicine 12/03/22 Liv Back APRN-EAR NOSE AND THROAT SPECIALIST [address] [facility] [address] [place] [address] Physician Air Conditioning Service Technician 01/11/18 Dory Aguilar MD [address] [place] [address] Rheumatology 03/17/18
--- OUTSIDE RECORDS SUMMARY | 2024-10-08 15:58 | XMS_ITS | Clinical Summary ---
Author Organization [facility] Address [address] [place] [address] Care Team Providers Care Workforce Management Coordinator Name Role Phone Tad Varghese DO Primary Care Provider [phone] Allergies Active Allergy Reactions Criticality Noted Date Comments Ceftriaxone Shortness of Breath/Wheezing,Haile h High 09/13/2017 Ceftriaxone In Dextrose,Iso-Os Rash,Shortness of Breath/Wheezing High 09/13/2017 Ceftriaxone Sodium (Bulk) Rash,Shortness of Breath/Wheezing High 09/13/2017 Gentamicin Hives High 01/14/2020 Levofloxacin Syncope,Rash High 09/13/2017 Losartan Other (See Comments),Shortness of Breath/Wheezing Low 07/19/2018 Fainting and lowers bp to low Fainting and lowers bp to low Fainting and lowers bp to low Fainting and lowers bp to low Nitrofurantoin Rash Medium 09/13/2017 Ondansetron Other (See Comments),Shortness of Breath/Wheezing Low 02/09/2018 Headaches Headaches Penicillins Rash Medium 09/13/2017 myalgias myalgias Pentazocine Nausea and Vomiting,Other (See Comments) Low 09/13/2017 halluciations halluciations Propoxyphene Rash Medium 09/13/2017 Propoxyphene Hcl Rash Medium 09/13/2017 Propoxyphene-Acetaminophe n Rash Medium 09/13/2017 Sulfamethoxazole-Trimetho prim Rash Medium 09/13/2017 Talwin Compound Rash Medium 07/19/2018 Unclassified Drug Rash Medium 07/19/2018 darvocet darvocet Medications ELIQUIS 5 mg tablet 06/15/2018 Active predniSONE (DELTASONE) 1 mg tablet 07/17/2018 Active triamterene-hyd roCHLOROthiazid e (MAXZIDE 25) 37.5-25 mg tablet 06/01/2018 Active cholecalciferol , Vitamin D3, 2,000 unit Tablet Take by mouth. Active TURMERIC ORAL Take by mouth. Active furosemide (LASIX) 20 mg tablet Take 20 mg by mouth daily. Active vitamin B complex (B COMPLEX VITAMINS INJECTION) Take by mouth. 09/13/2017 Active multivitamin (MULTIPLE VITAMINS ORAL) Take 1 Tablet by mouth. Active clobetasoL (TEMOVATE) 0.05 % Ointment 11/16/2019 Active semaglutide (Ozempic) 0.25 mg or 0.5 mg (2 mg/3 mL) Pen Injector 0.5 mg daily. 02/01/2023 Active pregabalin (Lyrica) 75 mg Capsule Take 1 Capsule (75 mg) by mouth daily at bedtime. 60 Capsule 02/11/2023 Active hydrOXYzine HCL (ATARAX) 25 mg tablet Take 1 Tablet (25 mg) by mouth 3 times daily as needed for Itching. 30 Tablet 1 02/11/2023 Active prednisoLONE 5 mg tablet Take 5 mg by mouth daily. 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 Encounters Date Type Department Care Team Description 08/15/2024 External Device Data [facility] ABSTRACTION Provider, Abstract 07/25/2024 External Device Data [facility]STRACTION Provider, Abstract 07/19/2024 External Device Data [facility] ABSTRACTION Provider, Abstract from Last 3 Months Family History Medical History Relation Name Comments Heart Disease Brother 1 Heart Disease Brother 2 Heart Disease Brother 3 Cancer Brother 4 Heart Disease Brother 4 Heart Disease Father Cancer Mother Heart Disease Mother Cancer Sister 1 Diabetes Sister 1 Heart Disease Sister 1 Cancer Sister 2 Heart Disease Sister 2 Heart Disease Sister 3 Relation Name Status Comments Brother 1 Alive Brother 2 Alive Brother 3 Brother 4 Father Mother Sister 1 Alive Sister 2 Alive Sister 3 Alive Social History Tobacco Use Types Packs/Day Years Used Date Smoking Tobacco: Never Smokeless Tobacco: Never Tobacco Cessation:Counseling Given: Not Answered Alcohol Use Standard Drinks/Week Comments Yes 0 (1 standard drink = 0.6 oz pur e alcohol) 3x a year Comments No Sex and Gender Information Value Date Recorded Sex Assigned at Not on file Legal Sex Female 3:27 AM [employer] Gender Identity Not on file Sexual Orientation Not on file Last Filed Vital Signs Vital Sign Reading Time Taken Comments Blood Pressure 127/61 02/10/2024 11:04 AM CDT Pulse 68 02/10/2024 11:04 AM CDT Temperature 36.4 C (97.5 F) 02/10/2024 11:04 AM CDT Respiratory Rate 15 02/10/2024 11:04 AM CDT Oxygen Saturation 96% 02/10/2024 11:04 AM CDT Inhaled Oxygen Concentration - - Weight 82.1 kg (181 lb) 02/10/2024 11:04 AM CDT Height 161.3 cm (5' 3.5 ) 01/12/2021 1:05 PM CDT Body Mass Index 31.56 01/12/2021 1:05 PM CDT Plan of Treatment Upcoming Encounters Date Type Department Care Team (Late st Contact Info) Description 02/15/2025 9:15 AM CDT Office Visit [facility] [place] [address] [place] [address] [address] [place] [address] Hawk Ferguson MD [address] [facility] [address] [place] [address] Health Maintenance Due Date Last Done Comments DIABETES ANNUAL FOOT EXAM 1960 DIABETES ANNUAL RETINAL EXAM 1960 DIABETES MICROALBUMIN ANNUAL SCREEN 1960 LDL CHOLESTEROL ANNUAL 1960 DTAP/TDAP/TD VACCINES (1 - Tdap) 1961 ZOSTER VACCINE (1 of 2) 1992 RSV VACCINE (60+ or ) (1 - 1-dose 75+ series) 2017 DIABETES HBA1C Q 6 MONTHS 07/30/2023 01/27/2023 INFLUENZA VACCINE (#1) 2024 06/13/2015, 2013 PNEUMOCOCCAL VACCINE 50+ YEARS Completed 0 01/02/2016, 06/13/2015, 06/27/2007 OSTEOPOROSIS SCREENING Completed 04/14/2023, 2022 Insurance AENA O MCR Care Teams Workforce Management Coordinator Relationship Specialty Start Date End Date Tad Varghese DO PCP - General Family Practice 02/11/23
== END 2024-10-08 14:14 | disposition home or self-care (01) ==
PROVIDERS: PCP Family Medicine; Visit Provider Family Medicine
DX: M17.12 Unilateral primary osteoarthritis, left knee (principal)
CPT/HCPCS: 73562; 93971